=== PATIENT | female | born 1960 | race African-American/Black ===

== ENCOUNTER 2017-02-06 12:08 | Emergency (ER) | payer SELFPAY ==
[~2017-02-06] VITALS: Ht 182.9 cm; Wt 65.8 kg
[2017-02-06 12:24] VITALS: BP 127/85
[2017-02-06] MEDS ORDERED: NAPROXEN 500 MG TABLET PO STA (12:33)
[2017-02-06] MEDS ORDERED: METH4TAB2 PO (12:40)
[2017-02-06] MEDS ORDERED: CYCL10TA2 PO (12:40)
--- NOTE | 2017-02-06 12:41 | PHYS DOC ---
Past Medical History Past Medical History: Other Additional Past Medical Histor: CHRONIC BACK PAIN Past Surgical History: No Surgical History Alcohol Use: Occasionally Drug Use: None Adult General Chief Complaint Chief Complaint: BACK PAIN - NO INJURY HPI HPI Patient is a 56 year old female who presents today with complaints of bilateral low back pain moderate in nature radiating to the right lower extremity that is chronic but has gotten worse in the last couple days. Patient states the pain is worse when she is ambulating. Patient denies any trauma. Denies any loss of bowel bladder function. Patient is also complaining of chronic dental caries with dental pain. She would like antibiotics. She does not have a dentist. Review of Systems Review of Systems Constitutional: Denies fever or chills [] Eyes: Denies change in visual acuity, redness, or eye pain [] HENT: Chronic dental pain GI: Denies abdominal pain, nausea, vomiting, bloody stools or diarrhea [] : Denies dysuria or hematuria [] Musculoskeletal: Low back pain Integument: Denies rash or skin lesions [] Neurologic: Denies headache, focal weakness or sensory changes [] Endocrine: Denies polyuria or polydipsia [] Current Medications Current Medications Current Medications Medications (Trade) Dose Ordered Sig/Zulma Start Time Stop Time Status Last Admin Dose Admin Acetaminophen/ Hydrocodone Bitart (Lortab 5/325) 1 tab 1X ONCE 02/06/17 12:45 02/06/17 12:46 DC 02/06/17 12:53 1 TAB Cyclobenzaprine HCl (Flexeril) 10 mg 1X ONCE 02/06/17 12:45 02/06/17 12:46 DC 02/06/17 12:53 10 MG Naproxen (Naprosyn) 500 mg 1X STAT 02/06/17 12:33 02/06/17 12:39 DC 02/06/17 12:53 500 MG Ondansetron HCl (Zofran Odt) 4 mg 1X ONCE 02/06/17 12:45 02/06/17 12:46 DC 02/06/17 12:52 4 MG Allergies Allergies Allergies Coded Allergies Type Severity Reaction Last Updated Verified No Known Drug Allergies 11/25/14 No Physical Exam Physical Exam Constitutional: Well developed, well nourished, no acute distress, non-toxic appearance. [] HENT: Normocephalic, atraumatic, bilateral external ears normal, oropharynx moist, no oral exudates, nose normal. [] Scattered dental caries throughout her teeth. Abdomen: Bowel sounds normal, soft, no tenderness, no masses, no pulsatile masses. [] Skin: Warm, dry, no erythema, no rash. [] Back: Diffuse paraspinal muscle tenderness to bilateral low lumbar region, no midline lumbar spine tenderness, no CVA tenderness. Positive right leg straight raise Extremities: No tenderness, no cyanosis, no clubbing, ROM intact, no edema. [] Neurologic: Alert and oriented X 3, normal motor function, normal sensory function, no focal deficits noted. [] Psychologic: Affect normal, judgement normal, mood normal. [] Current Patient Data Vital Signs Vital Signs Date Time Temp Pulse Resp B/P (MAP) Pulse Ox O2 Delivery O2 Flow Rate FiO2 02/06/17 12:24 97.6 82 18 98 Room Air 97.6 EKG EKG [] Radiology/Procedures Radiology/Procedures [] Course & Med Decision Making Course & Med Decision Making Pertinent Labs and Imaging studies reviewed. (See chart for details) Patient is in the ED with exacerbation of chronic back pain. She was discharged with Medrol Dosepak, naproxen, and Flexeril. Provided a doctor's list for follow -up. Provided return precautions. She was also discharged with amoxicillin for dental caries and encouraged to follow up with a dentist. Dragon Disclaimer Dragon Disclaimer This electronic medical record was generated, in whole or in part, using a voice recognition dictation system. Departure Departure Impression: Primary Impression: Chronic low back pain with sciatica Additional Impressions: Chronic dental pain Dental caries Disposition: 01 HOME, SELF-CARE Condition: STABLE Referrals: NO PCP (PCP) follow up with a primary care doctor in one week Patient Instructions: Back Pain, Adult, Sciatica, [id number] Additional Instructions: You were seen for chronic back pain. We sent you home with medications to help. Please consider establishing care with a primary doctor. Follow-up in the next 1 -2 weeks. Come back to the ED symptoms worsen. Scripts Amoxicillin (AMOXICILLIN) 875 Mg Tablet 1 TAB PO BID, #20 TAB Prov: MUTUNGAJENNIFER POSTPARTUM RN 02/06/17 Naproxen (NAPROXEN) 500 Mg Tablet.dr 1 TAB PO BID, #60 TAB 2 Refills Prov: JENNIFER KNOX APRN 02/06/17 Cyclobenzaprine Hcl (CYCLOBENZAPRINE HCL) 10 Mg Tablet 1 TAB PO TID, #30 TAB Prov: JENNIFER KNOX APRN 02/06/17 Methylprednisolone (MEDROL) 4 Mg Tab.ds.pk 1 PKG PO UD, #1 PKG Prov: JENNIFER KNOX APRN 02/06/17 Cyclobenzaprine Hcl (CYCLOBENZAPRINE HCL) 10 Mg Tablet 1 TAB PO TID, #30 TAB Prov: JENNIFER KNOX APRN 02/06/17 Problem Qualifiers Primary Impression: Chronic low back pain with sciatica Back pain laterality: right Sciatica laterality: sciatica of right side Qualified Codes: M54.41 - Lumbago with sciatica, right side; G89.29 - Other chronic pain JENNIFER KNOX GIA February 06, 2017 12:41
[2017-02-06] MEDS ORDERED: CYCLOBENZAPRINE 10 MG TABLET. PO ONE (12:45)
[2017-02-06] MEDS ORDERED: ONDANSETRON ODT 4 MG TAB.RAPDIS. PO ONE (12:45)
[2017-02-06] MEDS ORDERED: HYDROcodone/APAP 5/325MG 1 TAB TABLET PO ONE (12:45)
[2017-02-06] MEDS ORDERED: NAPR500T8 PO (12:53)
[2017-02-06] MEDS ORDERED: AMOX875T PO (12:53)
== END 2017-02-06 12:57 | disposition home or self-care (01) ==
LOC: ER 12:08
DX: G89.29 Other chronic pain (principal); M54.41 Lumbago with sciatica, right side; K02.9 Dental caries, unspecified; K08.89 Other specified disorders of teeth and supporting structures
CPT/HCPCS: 99284; Q0162

== ENCOUNTER 2017-02-15 18:23 | Inpatient (IN) | payer SELFPAY ==
[~2017-02-15] VITALS: Ht 182.9 cm; Wt 58.2 kg
[~2017-02-15 18:23] MED LIST: AMOX875T PO; CYCL10TA2 PO; METH4TAB2 PO; NAPR500T8 PO
[2017-02-15 19:25] LABS: BILIRUBIN,URINE MODERATE (NEG); GLUCOSE,URINE NEGATIVE (NEG); PH,URINE 5.5; PROTEIN,URINE NEGATIVE (NEG-TRACE)
[2017-02-15] MEDS ORDERED: ONDANSETRON PF 4 MG/2 ML VIAL. IV ONE (19:30)
[2017-02-15] MEDS ORDERED: fentaNYL PF VIAL 100 MCG/2 ML VIAL IV ONE (19:30)
[2017-02-15 19:32] LABS: BARBITURATES NEG (NEG); BENZODIAZEPINES NEG (NEG); CANNABINOIDS POS (NEG); COCAINE NEG (NEG); METHADONE NEG (NEG); OPIATES NEG (NEG); PHENCYCLIDINE NEG (NEG)
[2017-02-15 19:39] LABS: BASO % 0 % (0-3); EOS % 0 % (0-3); HEMATOCRIT 37.7 % (36.0-47.0); LYMPH # 1.3 x10^3/uL (1.0-4.8); LYMPH % 17 % (24-48); MEAN CORPUSCULAR HEMOGLOBIN 32 pg (25-35); MEAN CORPUSCULAR HGB CONC 34 g/dL (31-37); MEAN CORPUSCULAR VOLUME 94 fL (79-100); MONO % 12 % (0-9); NEUT % 70 % (31-73); PLATELET COUNT 265 x10^3/uL (140-400); RED CELL DISTRIBUTION WIDTH 15.3 % (11.5-14.5); WHITE BLOOD COUNT 7.6 x10^3/uL (4.0-11.0)
[2017-02-15 19:43] LABS: BACTERIA,URINE FEW /HPF (0-FEW); NITRITE,URINE NEGATIVE (NEG); RBC,URINE OCC /HPF (0-2); SQUAMOUS EPITHELIAL CELL,UR MANY /LPF
[2017-02-15] MEDS ORDERED: IV NORMAL SALINE 1000ML BAG 1,000 ML IV ONE (19:45)
[2017-02-15 19:55] LABS: ALBUMIN 3.1 g/dL (3.4-5.0); ALBUMIN/GLOBULIN RATIO 0.7 (1.0-1.7); CALCIUM 9.2 mg/dL (8.5-10.1); CREATININE 0.9 mg/dL (0.6-1.0); TOTAL BILIRUBIN 1.9 mg/dL (0.2-1.0); TOTAL PROTEIN 7.5 g/dL (6.4-8.2)
[2017-02-15 19:57] LABS: POTASSIUM 2.6 mmol/L (3.5-5.1)
[2017-02-15] MEDS ORDERED: FAMOTIDINE 20 MG/2 ML VIAL IVP ONE (20:00)
[2017-02-15] MEDS ORDERED: POTASSIUM CHLORIDE 20MEQ 50 ML IV ONE (20:00)
[2017-02-15] MEDS ORDERED: POTASSIUM CHLORIDE 20 MEQ TABLET.ER. PO ONE ×2 (20:00→22:00)
--- NOTE | 2017-02-15 21:03 | RAD ---
PROCEDURE Complete abdominal ultrasound dated 02/15/2017. HISTORY Abdominal pain. Abnormal labs. TECHNIQUE Routine sonographic imaging performed. COMPARISON None. FINDINGS Liver is of diffusely increased echogenicity compatible with fatty infiltration. No apparent hepatic mass. Biliary tree normal in caliber. Common bile duct measures 2 millimeter. Echogenic shadowing foci within the gallbladder lumen. There is also some layering echogenicity consistent with sludge. No gallbladder wall thickening or pericholecystic fluid. Right kidney measures 9.9 centimeter in length. Left kidney measures 10.0 centimeter in length. No hydronephrosis. Spleen is homogeneous in echogenicity and measures 6.4 centimeters longitudinal dimension. Pancreas aorta and IVC not well visualized due to overlying bowel gas. No significant ascites. IMPRESSION - Cholelithiasis and gallbladder sludge. There no secondary signs of acute cholecystitis. - Mild hepatic steatosis. Electronically signed by: Clif Beard (February 15, 2017 21:02:58)
[2017-02-15 21:20] VITALS: BP 158/105
[2017-02-15] MEDS ORDERED: MAGNESIUM HYDROXIDE 2,400 MG/30 ML ORAL.SUSP. PO PRN (21:30)
[2017-02-15] MEDS ORDERED: BISACODYL 10 MG SUPP.RECT. PR PRN (21:30)
[2017-02-15] MEDS ORDERED: PROCHLORPERAZINE 10 MG/2 ML VIAL. IV PRN (21:30)
[2017-02-15] MEDS ORDERED: LABETALOL 20 MG/4 ML DISP.SYRIN. IVP PRN (21:30)
[2017-02-15] MEDS ORDERED: KETOROLAC 15 MG/ML VIAL. IV PRN (21:30)
[2017-02-15] MEDS ORDERED: MORPHINE SULFATE 2 MG/ML DISP.SYRIN. IV PRN (21:30)
[2017-02-15] MEDS ORDERED: ZOLPIDEM 5 MG TABLET. PO PRN (21:30)
[2017-02-15] MEDS ORDERED: ONDANSETRON PF 4 MG/2 ML VIAL. IV PRN ×2 (21:30)
[2017-02-15] MEDS ORDERED: ACETAMINOPHEN 325 MG TABLET. PO PRN (21:30)
[2017-02-15] MEDS ORDERED: CALCIUM CARBONATE 500 MG TAB.CHEW PO PRN (21:30)
[2017-02-15] MEDS ORDERED: NICOTINE 21MG PATCH. TD PRN ×2 (21:30→22:00)
[2017-02-15] MEDS ORDERED: PROCHLORPERAZINE 25 MG SUPP.RECT. PR PRN (21:30)
[2017-02-15] MEDS ORDERED: MAG HYDROX/ALUMINUM HYD/SIMETH 30 ML ORAL.SUSP PO PRN (21:30)
[2017-02-15] MEDS ORDERED: chlordiazePOXIDE HCL 25 MG CAPSULE PO PRN (21:45)
--- NOTE | 2017-02-15 21:50 | PDOC1 ---
History and Physical Date of Admission Date of Admission DATE: 02/15/17 TIME: 21:38 Identification/Chief Complaint Chief Complaint back pain, nausea, vomiting, diarrhea few days Problems: Source Source: Caregiver, Chart review, Patient History of Present Illness History of Present Illness 56 y.o AA female, rough lifestyle with alcohol drinking, smoking, recreational drug use, admitted this time for critical hypokalemia from nausea, emesis, loose stools 3x./day, non bloody for few days now. AT ER, K 2 plus, No mag, Still some watery diarrhea in room, no recent sick contacts or recent travels. NO fevers, no white ct, Admits to smoking marijuana, drinks 4 beers a day and some gin, consumes 1/4th of a pack of cigarettes a day, US showed fatty liver and gB sludge and cholelithiasis, but no inflammation. She is tender to touch in epigastric/danielle umbilical area, She sought consult last week at ER for similar sxs, back pain and emesis sent home with Rx but no resolve hence back here. ABd pain mostly central, involving the back, no identifiable precipitating or alleviating factor, maybe 8/10 worst case, with diarrhea and emesis PAst medical: CAD 1 stent many yrs ago Brain sx for "clot" [facility] Past Medical History Cardiovascular: CAD, Other (1 stent) Heme/Onc: Other (brain clot) Past Surgical History Past Surgical History: Other (brain sx, cardiac cath) Family History Family History: No Significant, Family History Unknown, Other (reviewed, she does not know for sure) Social History Smoke: <1 pack per day ALCOHOL: heavy Drugs: Cocaine, Marijuana Current Problem List Problem List Problems Medical Problems: (1) Abdominal pain Status: Acute (2) Hypokalemia Status: Acute Problems: Current Medications Current Medications Current Medications Fentanyl Citrate (Fentanyl 2ml Vial) 50 mcg 1X ONCE IV Last administered on 20:02; Start 02/15/17 at 19:30; Stop 02/15/17 at 19:31; Status DC Ondansetron HCl (Zofran) 4 mg 1X ONCE IV Last administered on 02/15/17 20:00 ; Start 02/15/17 at 19:30; Stop 02/15/17 at 19:31; Status DC Sodium Chloride 1,000 ml @ 1,000 mls/hr 1X ONCE IV Last administered on 19:59; Start 02/15/17 at 19:45; Stop 02/15/17 at 20:44; Status DC Famotidine (Pepcid) 20 mg 1X ONCE IVP Last administered on 02/15/17 20:16; Start 02/15/17 at 20:00; Stop 02/15/17 at 20:08; Status DC Potassium Chloride (Klor-Con) 40 meq 1X ONCE PO Last administered on 20:16; Start 02/15/17 at 20:00; Stop 02/15/17 at 20:08; Status DC Potassium Chloride 50 ml @ 50 mls/hr 1X ONCE IV Last administered on 20:16; Start 02/15/17 at 20:00; Stop 02/15/17 at 20:59; Status DC Potassium Chloride/Sodium Chloride 1,000 ml @ 100 mls/hr Q10H IV ; Start at 22:00 Ondansetron HCl (Zofran) 4 mg PRN Q6HRS PRN IV NAUSEA/VOMITING; Start 02/15/17 at 21:30 Prochlorperazine Edisylate (Compazine) 10 mg PRN Q6HRS PRN IV NAUSEA/VOMITING; Start 02/15/17 at 21:30 Prochlorperazine (Compazine) 25 mg PRN Q12HR PRN LA NAUSEA/VOMITING; Start at 21:30 Al Hydroxide/Mg Hydroxide (Mylanta Plus Xs) 30 ml PRN Q3HRS PRN PO HEARTBURN / GAS; Start 02/15/17 at 21:30 Calcium Carbonate/ Glycine (Tums) 500 mg PRN Q3HRS PRN PO UPSET STOMACH; Start 02/15/17 at 21:30 Zolpidem Tartrate (Ambien) 5 mg PRN QHS PRN PO INSOMNIA, MAY REPEAT IN 1HR; Start 02/15/17 at 21:30 Oxycodone HCl (Roxicodone) 5 mg PRN Q3HRS PRN PO BREAKTHROUGH PAIN; Start 02/15 at 21:30 Morphine Sulfate 1 mg PRN Q1HR PRN IV MODERATE PAIN; Start 02/15/17 at 21:30 Ketorolac Tromethamine (Toradol) 15 mg PRN Q6HRS PRN IV MODERATE PAIN; Start at 21:30; Stop 02/20/17 at 21:29 Acetaminophen (Tylenol) 650 mg PRN Q6HRS PRN PO Headaches, Temp > 101.5F; Start 02/15/17 at 21:30 Senna/Docusate Sodium (Senna Plus) 1 tab BID PO ; Start 02/16/17 at 09:00 Magnesium Hydroxide (Milk Of Magnesia) 2,400 mg PRN Q12HR PRN PO CONSTIPATION; Start 02/15/17 at 21:30 Bisacodyl (Dulcolax Supp) 10 mg PRN DAILY PRN LA CONSTIPATION; Start 02/15/17 at 21:30 Enoxaparin Sodium (Lovenox 40mg Syringe) 40 mg Q24H SQ ; Start 02/15/17 at 22:00 Nicotine (Nicoderm Cq 21mg) 1 patch PRN DAILY PRN TD SMOKING CESSATION; Start 02/15/17 at 21:30 Labetalol HCl (Normodyne) 10 mg PRN Q2HR PRN IVP HYPERTENSION, SEE COMMENTS; Start 02/15/17 at 21:30 Ondansetron HCl (Zofran) 4 mg PRN Q8HRS PRN IV NAUSEA/VOMITING; Start 02/15/17 at 21:30; Stop 02/16/17 at 21:29; Status UNV Multivitamins 10 ml/Folic Acid 1 mg/Thiamine HCl 100 mg/Dextrose/ Sodium Chloride 1,011.2 ml @ 1,000 mls/ hr 1X ONCE IV ; Start 02/15/17 at 22:00; Stop 02/15/17 at 23:00 Famotidine (Pepcid) 20 mg BID IVP ; Start 02/16/17 at 09:00 Potassium Chloride (Klor-Con) 40 meq 1X ONCE PO ; Start 02/15/17 at 22:00; Stop 02/15/17 at 22:01 Potassium Chloride (Klor-Con) 40 meq DAILY PO ; Start 02/16/17 at 09:00 Active Scripts Active Amoxicillin 875 Mg Tablet 1 Tab PO BID Naproxen 500 Mg Tablet.dr 1 Tab PO BID Cyclobenzaprine Hcl 10 Mg Tablet 1 Tab PO TID Medrol (Methylprednisolone) 4 Mg Tab.ds.pk 1 Pkg PO UD Cyclobenzaprine Hcl 10 Mg Tablet 1 Tab PO TID Allergies Allergies: Coded Allergies: No Known Drug Allergies (Unverified , 11/25/14) ROS General: No: Chills, Night Sweats, Fatigue, Malaise, Appetite, Other PSYCHOLOGICAL ROS: No: Anxiety, Behavioral Disorder, Concentration difficultie , Decreased libido, Depression, Disorientation, Hallucinations, Hostility, Irritablity, Memory difficulties, Mood Swings, Obsessive thoughts, Physical abuse, Sexual abuse, Sleep disturbances, Suicidal ideation, Other Eyes: No Blurry vision, No Decreased vision, No Double vision, No Dry eyes, No Excessive tearing, No Eye Pain, No Itchy Eyes, No Loss of vision, No Photophobia , No Scotomata, No Uses contacts, No Uses glasses, No Other HEENT: No: Heacaches, Visual Changes, Hearing change, Nasal congestion, Nasal discharge, Oral lesions, Sinus pain, Sore Throat, Epistaxis, Sneezing, Snoring, Tinnitus, Vertigo, Vocal changes, Other ALLERGY AND IMMUNOLOGY: No: Hives, Insect Bite Sensitivity, Itchy/Watery Eyes, Nasal Congestion, Post Nasal Drip, Seasonal Allergies, Other Hematological and Lymphatic: No: Bleeding Problems, Blood Clots, Blood Transfusions, Brusing, Night Sweats, Pallor, Swollen Lymph Nodes, Other ENDOCRINE: No: Breast Changes, Galactorrhea, Hair Pattern Changes, Hot Flashes , Malaise/lethargy, Mood Swings, Palpitations, Polydipsia/polyuria, Skin Changes , Temperature Intolerance, Unexpected Weight Changes, Other Breast: No New/Changing Breast Lumps, No Nipple changes, No Nipple discharge, No Other Respiratory: No: Cough, Hemoptysis, Orthopnea, Pleuritic Pain, Shortness of breath, SOB with excertion, Sputum Changes, Stridor, Tachypnea, Wheezing, Other Cardiovascular: No Chest Pain, No Palpitations, No Orthopnea, No Paroxysmal Noc. Dyspnea, No Edema, No Lt Headedness, No Other Gastrointestinal: Yes Nausea, Yes Vomiting, Yes Abdominal Pain, Yes Diarrhea Genitourinary: No Dysuria, No Frequency, No Incontinence, No Hematuria, No Retention, No Discharge, No Urgency, No Pain, No Flank Pain, No Other, No , No , No , No , No , No , No Musculoskeletal: No Gait Disturbance, No Joint Pain, No Joint Stiffness, No Joint Swelling, No Muscle Pain, No Muscular Weakness, No Pain In:, No Swelling In:, No Other Neurological: No Behavorial Changes, No Bowel/Bladder ControlChng, No Confusion , No Dizziness, No Gait Disturbance, No Headaches, No Impaired Coord/balance, No Memory Loss, No Numbness/Tingling, No Seizures, No Speech Problems, No Tremors, No Visual Changes, No Weakness, No Other Skin: No Dry Skin, No Eczema, No Hair Changes, No Lumps, No Mole Changes, No Mottling, No Nail Changes, No Pruritus, No Rash, No Skin Lesion Changes, No Other, No Acne Physical Exam General: Alert, Oriented X3, Cooperative, No acute distress HEENT: Atraumatic Lungs: Clear to auscultation, Normal air movement Heart: S1S2, RRR, no thrills, no rubs, no gallops, no murmurs Cardiovascular: S1, S2 Breasts: Normal Abdomen: Soft, Other (tenderness epigastric and periumbilical areas, no guarding no rebound) Rectal Exam: not examined PELVIC: Nml ext genitalia Extremities: No clubbing, No cyanosis, No edema, Normal pulses, No tenderness/ swelling Skin: No rashes, No breakdown, No significant lesion Neuro: Normal gait, Normal speech, Strength at 5/5 X4 ext, Normal tone, Sensation intact, Cranial nerves 3-12 NL, Reflexes 2+ Psych/Mental Status: Mental status NL, Mood NL Vitals Vitals Vital Signs Date Time Temp Pulse Resp B/P (MAP) Pulse Ox O2 Delivery O2 Flow Rate FiO2 02/15/17 20:40 82 165/92 (116) 02/15/17 20:02 Room Air 02/15/17 18:40 97.8 20 99 97.8 Labs Labs Laboratory Tests Test 02/15/17 19:02 02/15/17 19:29 Urine Collection Type Unknown Urine Color Sebastian Urine Clarity Turbid Urine pH 5.5 Urine Specific [place] 1.020 Urine Protein Negative mg/dL (NEG-TRACE) Urine Glucose (UA) Negative mg/dL (NEG) Urine Ketones (Stick) Trace mg/dL (NEG) Urine Blood Negative (NEG) Urine Nitrite Negative (NEG) Urine Bilirubin Moderate (NEG) Urine Urobilinogen Dipstick 2.0 mg/dL (0.2 mg/dL) Urine Leukocyte Esterase Negative (NEG) Urine RBC Occ /HPF (0-2) Urine WBC 1-4 /HPF (0-4) Urine Squamous Epithelial Cells Many /LPF Urine Bacteria Few /HPF (0-FEW) Urine Hyaline Casts Many /HPF Urine Mucus Marked /LPF Urine Opiates Screen Neg (NEG) Urine Methadone Screen Neg (NEG) Urine Barbiturates Neg (NEG) Urine Phencyclidine Screen Neg (NEG) Urine Amphetamine/Methamphetamine Neg (NEG) Urine Benzodiazepines Screen Neg (NEG) Urine Cocaine Screen Neg (NEG) Urine Cannabinoids Screen Pos (NEG) Urine Ethyl Alcohol Pos (NEG) White Blood Count 7.6 x10^3/uL (4.0-11.0) Red Blood Count 4.00 x10^6/uL (3.50-5.40) Hemoglobin 13.0 g/dL (12.0-15.5) Hematocrit 37.7 % (36.0-47.0) Mean Corpuscular Volume 94 fL (79-100) Mean Corpuscular Hemoglobin 32 pg (25-35) Mean Corpuscular Hemoglobin Concent 34 g/dL (31-37) Red Cell Distribution Width 15.3 % (11.5-14.5) Platelet Count 265 x10^3/uL (140-400) Neutrophils (%) (Auto) 70 % (31-73) Lymphocytes (%) (Auto) 17 % (24-48) Monocytes (%) (Auto) 12 % (0-9) Eosinophils (%) (Auto) 0 % (0-3) Basophils (%) (Auto) 0 % (0-3) Neutrophils # (Auto) 5.3 x10^3uL (1.8-7.7) Lymphocytes # (Auto) 1.3 x10^3/uL (1.0-4.8) Monocytes # (Auto) 0.9 x10^3/uL (0.0-1.1) Eosinophils # (Auto) 0.0 x10^3/uL (0.0-0.7) Basophils # (Auto) 0.0 x10^3/uL (0.0-0.2) Sodium Level 131 mmol/L (136-145) Potassium Level 2.6 mmol/L (3.5-5.1) Chloride Level 92 mmol/L (98-107) Carbon Dioxide Level 26 mmol/L (21-32) Anion Gap 13 (6-14) Blood Urea Nitrogen 5 mg/dL (7-20) Creatinine 0.9 mg/dL (0.6-1.0) Estimated GFR (Cockcroft-Gault) 79.0 BUN/Creatinine Ratio 6 (6-20) Glucose Level 123 mg/dL (70-99) Calcium Level 9.2 mg/dL (8.5-10.1) Total Bilirubin 1.9 mg/dL (0.2-1.0) Aspartate Amino Transf (AST/SGOT) 66 U/L (15-37) Alanine Aminotransferase (ALT/SGPT) 55 U/L (14-59) Alkaline Phosphatase 219 U/L (46-116) Total Protein 7.5 g/dL (6.4-8.2) Albumin 3.1 g/dL (3.4-5.0) Albumin/Globulin Ratio 0.7 (1.0-1.7) Lipase 53 U/L (73-393) Ethyl Alcohol Level < 10 mg/dL (0-10) Laboratory Tests Test 02/15/17 19:02 02/15/17 19:29 Urine Collection Type Unknown Urine Color Sebastian Urine Clarity Turbid Urine pH 5.5 Urine Specific [place] 1.020 Urine Protein Negative mg/dL (NEG-TRACE) Urine Glucose (UA) Negative mg/dL (NEG) Urine Ketones (Stick) Trace mg/dL (NEG) Urine Blood Negative (NEG) Urine Nitrite Negative (NEG) Urine Bilirubin Moderate (NEG) Urine Urobilinogen Dipstick 2.0 mg/dL (0.2 mg/dL) Urine Leukocyte Esterase Negative (NEG) Urine RBC Occ /HPF (0-2) Urine WBC 1-4 /HPF (0-4) Urine Squamous Epithelial Cells Many /LPF Urine Bacteria Few /HPF (0-FEW) Urine Hyaline Casts Many /HPF Urine Mucus Marked /LPF Urine Opiates Screen Neg (NEG) Urine Methadone Screen Neg (NEG) Urine Barbiturates Neg (NEG) Urine Phencyclidine Screen Neg (NEG) Urine Amphetamine/Methamphetamine Neg (NEG) Urine Benzodiazepines Screen Neg (NEG) Urine Cocaine Screen Neg (NEG) Urine Cannabinoids Screen Pos (NEG) Urine Ethyl Alcohol Pos (NEG) White Blood Count 7.6 x10^3/uL (4.0-11.0) Red Blood Count 4.00 x10^6/uL (3.50-5.40) Hemoglobin 13.0 g/dL (12.0-15.5) Hematocrit 37.7 % (36.0-47.0) Mean Corpuscular Volume 94 fL (79-100) Mean Corpuscular Hemoglobin 32 pg (25-35) Mean Corpuscular Hemoglobin Concent 34 g/dL (31-37) Red Cell Distribution Width 15.3 % (11.5-14.5) Platelet Count 265 x10^3/uL (140-400) Neutrophils (%) (Auto) 70 % (31-73) Lymphocytes (%) (Auto) 17 % (24-48) Monocytes (%) (Auto) 12 % (0-9) Eosinophils (%) (Auto) 0 % (0-3) Basophils (%) (Auto) 0 % (0-3) Neutrophils # (Auto) 5.3 x10^3uL (1.8-7.7) Lymphocytes # (Auto) 1.3 x10^3/uL (1.0-4.8) Monocytes # (Auto) 0.9 x10^3/uL (0.0-1.1) Eosinophils # (Auto) 0.0 x10^3/uL (0.0-0.7) Basophils # (Auto) 0.0 x10^3/uL (0.0-0.2) Sodium Level 131 mmol/L (136-145) Potassium Level 2.6 mmol/L (3.5-5.1) Chloride Level 92 mmol/L (98-107) Carbon Dioxide Level 26 mmol/L (21-32) Anion Gap 13 (6-14) Blood Urea Nitrogen 5 mg/dL (7-20) Creatinine 0.9 mg/dL (0.6-1.0) Estimated GFR (Cockcroft-Gault) 79.0 BUN/Creatinine Ratio 6 (6-20) Glucose Level 123 mg/dL (70-99) Calcium Level 9.2 mg/dL (8.5-10.1) Total Bilirubin 1.9 mg/dL (0.2-1.0) Aspartate Amino Transf (AST/SGOT) 66 U/L (15-37) Alanine Aminotransferase (ALT/SGPT) 55 U/L (14-59) Alkaline Phosphatase 219 U/L (46-116) Total Protein 7.5 g/dL (6.4-8.2) Albumin 3.1 g/dL (3.4-5.0) Albumin/Globulin Ratio 0.7 (1.0-1.7) Lipase 53 U/L (73-393) Ethyl Alcohol Level < 10 mg/dL (0-10) VTE Prophylaxis Ordered VTE Prophylaxis Devices: Yes VTE Pharmacological Prophylaxi: Yes Assessment/Plan Assessment/Plan 1. Abdominal pain, epigastric, periumbilical with radiation to back difftls include cholelithiasis (though not the classic RUQ pain, PUD ryley given heavy smoking and etoh hx). 2. CHolelithiasis but no cholecystitis, fatty liver 3. Heavy etoh drinker 4. Recreational drug use 5. SMoker 6. ELevated LFts 7. Known CAD with 1 cardiac stent 8, hx brain "clot" 9,. CRITICAL HYPOKALEMIA from GI loss (emesis, diarrhea) PLAN: Admit 2 MN NPO post mN in case GS plans K containing iVF BMP again gennaro Check mag consult GI and GS Banana bag then thiamine, MVI, librium, folate PPI while NPO Nicorette gum and patch Anti emetics PAin emds Send for stool studies Keep hydrated WOF etoh withdrawal Counselled, heavy on lifestyle Dw pt, family , RN and aide at bedside GILLIAN BAKER MD February 15, 2017 21:50
[2017-02-15] MEDS ORDERED: NICOTINE POLACRILEX 2MG GUM PACKAGE of 12. BC PRN (22:00)
[2017-02-15] MEDS ORDERED: MULTIVIT INFUSN,ADULT 4,VIT K 10 ML, FOLIC ACID 1 MG, THIAMINE 100 MG in IV DEXTROSE 5 ... IV ONE (22:00)
[2017-02-15] MEDS: ENOXAPARIN 40 MG/0.4 ML SYRINGE. SQ SCH (22:05)
[2017-02-15] MEDS: POTASSIUM CL 40MEQ IN 0.9%NACL 1,000 ML IV SCH (22:06)
[2017-02-15 23:00] VITALS: BP 124/97
[2017-02-16 05:11] LABS: MAGNESIUM 1.6 mg/dL (1.8-2.4); PHOSPHORUS 2.3 mg/dL (2.6-4.7)
[2017-02-16 05:12] LABS: INR 1.1 (0.8-1.1); PROTHROMBIN TIME PATIENT 13.8 SEC (11.7-14.0)
[2017-02-16 05:45] LABS: BASO # 0.1 x10^3/uL (0.0-0.2); BASO % 1 % (0-3); EOS % 0 % (0-3); HEMATOCRIT 27.9 % (36.0-47.0); HEMOGLOBIN 9.4 g/dL (12.0-15.5); LYMPH # 2.7 x10^3/uL (1.0-4.8); LYMPH % 37 % (24-48); MEAN CORPUSCULAR HEMOGLOBIN 32 pg (25-35); MEAN CORPUSCULAR HGB CONC 34 g/dL (31-37); MEAN CORPUSCULAR VOLUME 95 fL (79-100); MONO % 12 % (0-9); NEUT % 50 % (31-73); PLATELET COUNT 202 x10^3/uL (140-400); RED BLOOD COUNT 2.95 x10^6/uL (3.50-5.40); RED CELL DISTRIBUTION WIDTH 15.8 % (11.5-14.5); WHITE BLOOD COUNT 7.1 x10^3/uL (4.0-11.0)
[2017-02-16 05:55] LABS: CALCIUM 7.9 mg/dL (8.5-10.1); CREATININE 0.7 mg/dL (0.6-1.0); GFR 105.5; POTASSIUM 4.3 mmol/L (3.5-5.1)
--- NOTE | 2017-02-16 06:17 | EKG ---
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
[2017-02-16 07:00] VITALS: BP 122/69
[2017-02-16] MEDS: POTASSIUM CL 40MEQ IN 0.9%NACL 1,000 ML IV SCH (07:48)
[2017-02-16] MEDS ORDERED: MAGNESIUM SULFATE 2GM 50 ML IV ONE (08:00)
--- NOTE | 2017-02-16 08:21 | PDOC ---
PROGRESS NOTES Chief Complaint Chief Complaint 1. Abdominal pain, epigastric, periumbilical with radiation to back difftls include cholelithiasis (though not the classic RUQ pain, PUD ryley given heavy smoking and etoh hx). 2. CHolelithiasis but no cholecystitis, fatty liver 3. Heavy etoh drinker 4. Recreational drug use 5. SMoker 6. ELevated LFts 7. Known CAD with 1 cardiac stent 8, hx brain "clot" 9,. CRITICAL HYPOKALEMIA from GI loss (emesis, diarrhea) History of Present Illness History of Present Illness Still diarrhea - I have personally seen, sent to lab this AM already Still epigastric pain mostly, tender to palpation HAs been NPO pending GS eval CHolelithiasis on US K 4,5 now MAg 1.6 PLAn: Await GS rounds NPO till GS rounds Dc K containing IVF Replace mag 2 gms x 1 REcheck mag to AM counselled on her lifestyle habits January dc tele Dw RN and executive legal secretary Vitals Vitals Vital Signs Date Time Temp Pulse Resp B/P (MAP) Pulse Ox O2 Delivery O2 Flow Rate FiO2 02/15/17 23:00 98.0 89 20 124/97 (106) 100 Room Air 98.0 Physical Exam General: Alert, Oriented X3, Cooperative, No acute distress Heart: Regular rate Lungs: Clear Abdomen: Soft, Other (tenderness epigastric and periumbilical areas, no guarding no rebound) Extremities: No clubbing, No cyanosis, No edema, Normal pulses, No tenderness/ swelling Skin: No rashes, No breakdown, No significant lesion Labs LABS Laboratory Tests Test 02/15/17 19:02 02/15/17 19:29 02/16/17 03:20 02/16/17 05:30 Urine Collection Type Unknown Urine Color [place] Urine Clarity Turbid Urine pH 5.5 Urine Specific [place] 1.020 Urine Protein Negative mg/dL (NEG-TRACE) Urine Glucose (UA) Negative mg/dL (NEG) Urine Ketones (Stick) Trace mg/dL (NEG) Urine Blood Negative (NEG) Urine Nitrite Negative (NEG) Urine Bilirubin Moderate (NEG) Urine Urobilinogen Dipstick 2.0 mg/dL (0.2 mg/dL) Urine Leukocyte Esterase Negative (NEG) Urine RBC Occ /HPF (0-2) Urine WBC 1-4 /HPF (0-4) Urine Squamous Epithelial Cells Many /LPF Urine Bacteria Few /HPF (0-FEW) Urine Hyaline Casts Many /HPF Urine Mucus Marked /LPF Urine Opiates Screen Neg (NEG) Urine Methadone Screen Neg (NEG) Urine Barbiturates Neg (NEG) Urine Phencyclidine Screen Neg (NEG) Urine Amphetamine/Methamphetamine Neg (NEG) Urine Benzodiazepines Screen Neg (NEG) Urine Cocaine Screen Neg (NEG) Urine Cannabinoids Screen Pos (NEG) Urine Ethyl Alcohol Pos (NEG) White Blood Count 7.6 x10^3/uL (4.0-11.0) 7.1 x10^3/uL (4.0-11.0) Red Blood Count 4.00 x10^6/uL (3.50-5.40) 2.95 x10^6/uL (3.50-5.40) Hemoglobin 13.0 g/dL (12.0-15.5) 9.4 g/dL (12.0-15.5) Hematocrit 37.7 % (36.0-47.0) 27.9 % (36.0-47.0) Mean Corpuscular Volume 94 fL (79-100) 95 fL (79-100) Mean Corpuscular Hemoglobin 32 pg (25-35) 32 pg (25-35) Mean Corpuscular Hemoglobin Concent 34 g/dL (31-37) 34 g/dL (31-37) Red Cell Distribution Width 15.3 % (11.5-14.5) 15.8 % (11.5-14.5) Platelet Count 265 x10^3/uL (140-400) 202 x10^3/uL (140-400) Neutrophils (%) (Auto) 70 % (31-73) 50 % (31-73) Lymphocytes (%) (Auto) 17 % (24-48) 37 % (24-48) Monocytes (%) (Auto) 12 % (0-9) 12 % (0-9) Eosinophils (%) (Auto) 0 % (0-3) 0 % (0-3) Basophils (%) (Auto) 0 % (0-3) 1 % (0-3) Neutrophils # (Auto) 5.3 x10^3uL (1.8-7.7) 3.5 x10^3uL (1.8-7.7) Lymphocytes # (Auto) 1.3 x10^3/uL (1.0-4.8) 2.7 x10^3/uL (1.0-4.8) Monocytes # (Auto) 0.9 x10^3/uL (0.0-1.1) 0.8 x10^3/uL (0.0-1.1) Eosinophils # (Auto) 0.0 x10^3/uL (0.0-0.7) 0.0 x10^3/uL (0.0-0.7) Basophils # (Auto) 0.0 x10^3/uL (0.0-0.2) 0.1 x10^3/uL (0.0-0.2) Sodium Level 131 mmol/L (136-145) 131 mmol/L (136-145) Potassium Level 2.6 mmol/L (3.5-5.1) 4.3 mmol/L (3.5-5.1) Chloride Level 92 mmol/L (98-107) 98 mmol/L (98-107) Carbon Dioxide Level 26 mmol/L (21-32) 23 mmol/L (21-32) Anion Gap 13 (6-14) 10 (6-14) Blood Urea Nitrogen 5 mg/dL (7-20) 8 mg/dL (7-20) Creatinine 0.9 mg/dL (0.6-1.0) 0.7 mg/dL (0.6-1.0) Estimated GFR (Cockcroft-Gault) 79.0 105.5 BUN/Creatinine Ratio 6 (6-20) Glucose Level 123 mg/dL (70-99) 63 mg/dL (70-99) Calcium Level 9.2 mg/dL (8.5-10.1) 7.9 mg/dL (8.5-10.1) Magnesium Level 1.7 mg/dL (1.8-2.4) 1.6 mg/dL (1.8-2.4) Total Bilirubin 1.9 mg/dL (0.2-1.0) Aspartate Amino Transf (AST/SGOT) 66 U/L (15-37) Alanine Aminotransferase (ALT/SGPT) 55 U/L (14-59) Alkaline Phosphatase 219 U/L (46-116) Total Protein 7.5 g/dL (6.4-8.2) Albumin 3.1 g/dL (3.4-5.0) Albumin/Globulin Ratio 0.7 (1.0-1.7) Lipase 53 U/L (73-393) Ethyl Alcohol Level < 10 mg/dL (0-10) Prothrombin Time 13.8 SEC (11.7-14.0) Prothromb Time International Ratio 1.1 (0.8-1.1) Phosphorus Level 2.3 mg/dL (2.6-4.7) Review of Systems Review of Systems epigastric pain, loose stools, no emesis Assessment and Plan Assessmemt and Plan Problems Medical Problems: (1) Abdominal pain Status: Acute (2) Hypokalemia Status: Acute Problems: Comment Review of Relevant I have reviewed the following items ujan m (where applicable) has been applied. Labs Laboratory Tests Test 02/15/17 19:02 02/15/17 19:29 02/16/17 03:20 02/16/17 05:30 Urine Collection Type Unknown Urine Color [place] Urine Clarity Turbid Urine pH 5.5 Urine Specific [place] 1.020 Urine Protein Negative mg/dL (NEG-TRACE) Urine Glucose (UA) Negative mg/dL (NEG) Urine Ketones (Stick) Trace mg/dL (NEG) Urine Blood Negative (NEG) Urine Nitrite Negative (NEG) Urine Bilirubin Moderate (NEG) Urine Urobilinogen Dipstick 2.0 mg/dL (0.2 mg/dL) Urine Leukocyte Esterase Negative (NEG) Urine RBC Occ /HPF (0-2) Urine WBC 1-4 /HPF (0-4) Urine Squamous Epithelial Cells Many /LPF Urine Bacteria Few /HPF (0-FEW) Urine Hyaline Casts Many /HPF Urine Mucus Marked /LPF Urine Opiates Screen Neg (NEG) Urine Methadone Screen Neg (NEG) Urine Barbiturates Neg (NEG) Urine Phencyclidine Screen Neg (NEG) Urine Amphetamine/Methamphetamine Neg (NEG) Urine Benzodiazepines Screen Neg (NEG) Urine Cocaine Screen Neg (NEG) Urine Cannabinoids Screen Pos (NEG) Urine Ethyl Alcohol Pos (NEG) White Blood Count 7.6 x10^3/uL (4.0-11.0) 7.1 x10^3/uL (4.0-11.0) Red Blood Count 4.00 x10^6/uL (3.50-5.40) 2.95 x10^6/uL (3.50-5.40) Hemoglobin 13.0 g/dL (12.0-15.5) 9.4 g/dL (12.0-15.5) Hematocrit 37.7 % (36.0-47.0) 27.9 % (36.0-47.0) Mean Corpuscular Volume 94 fL (79-100) 95 fL (79-100) Mean Corpuscular Hemoglobin 32 pg (25-35) 32 pg (25-35) Mean Corpuscular Hemoglobin Concent 34 g/dL (31-37) 34 g/dL (31-37) Red Cell Distribution Width 15.3 % (11.5-14.5) 15.8 % (11.5-14.5) Platelet Count 265 x10^3/uL (140-400) 202 x10^3/uL (140-400) Neutrophils (%) (Auto) 70 % (31-73) 50 % (31-73) Lymphocytes (%) (Auto) 17 % (24-48) 37 % (24-48) Monocytes (%) (Auto) 12 % (0-9) 12 % (0-9) Eosinophils (%) (Auto) 0 % (0-3) 0 % (0-3) Basophils (%) (Auto) 0 % (0-3) 1 % (0-3) Neutrophils # (Auto) 5.3 x10^3uL (1.8-7.7) 3.5 x10^3uL (1.8-7.7) Lymphocytes # (Auto) 1.3 x10^3/uL (1.0-4.8) 2.7 x10^3/uL (1.0-4.8) Monocytes # (Auto) 0.9 x10^3/uL (0.0-1.1) 0.8 x10^3/uL (0.0-1.1) Eosinophils # (Auto) 0.0 x10^3/uL (0.0-0.7) 0.0 x10^3/uL (0.0-0.7) Basophils # (Auto) 0.0 x10^3/uL (0.0-0.2) 0.1 x10^3/uL (0.0-0.2) Sodium Level 131 mmol/L (136-145) 131 mmol/L (136-145) Potassium Level 2.6 mmol/L (3.5-5.1) 4.3 mmol/L (3.5-5.1) Chloride Level 92 mmol/L (98-107) 98 mmol/L (98-107) Carbon Dioxide Level 26 mmol/L (21-32) 23 mmol/L (21-32) Anion Gap 13 (6-14) 10 (6-14) Blood Urea Nitrogen 5 mg/dL (7-20) 8 mg/dL (7-20) Creatinine 0.9 mg/dL (0.6-1.0) 0.7 mg/dL (0.6-1.0) Estimated GFR (Cockcroft-Gault) 79.0 105.5 BUN/Creatinine Ratio 6 (6-20) Glucose Level 123 mg/dL (70-99) 63 mg/dL (70-99) Calcium Level 9.2 mg/dL (8.5-10.1) 7.9 mg/dL (8.5-10.1) Magnesium Level 1.7 mg/dL (1.8-2.4) 1.6 mg/dL (1.8-2.4) Total Bilirubin 1.9 mg/dL (0.2-1.0) Aspartate Amino Transf (AST/SGOT) 66 U/L (15-37) Alanine Aminotransferase (ALT/SGPT) 55 U/L (14-59) Alkaline Phosphatase 219 U/L (46-116) Total Protein 7.5 g/dL (6.4-8.2) Albumin 3.1 g/dL (3.4-5.0) Albumin/Globulin Ratio 0.7 (1.0-1.7) Lipase 53 U/L (73-393) Ethyl Alcohol Level < 10 mg/dL (0-10) Prothrombin Time 13.8 SEC (11.7-14.0) Prothromb Time International Ratio 1.1 (0.8-1.1) Phosphorus Level 2.3 mg/dL (2.6-4.7) Laboratory Tests Test 02/15/17 19:02 02/15/17 19:29 02/16/17 03:20 02/16/17 05:30 Urine Collection Type Unknown Urine Color [place] Urine Clarity Turbid Urine pH 5.5 Urine Specific [place] 1.020 Urine Protein Negative mg/dL (NEG-TRACE) Urine Glucose (UA) Negative mg/dL (NEG) Urine Ketones (Stick) Trace mg/dL (NEG) Urine Blood Negative (NEG) Urine Nitrite Negative (NEG) Urine Bilirubin Moderate (NEG) Urine Urobilinogen Dipstick 2.0 mg/dL (0.2 mg/dL) Urine Leukocyte Esterase Negative (NEG) Urine RBC Occ /HPF (0-2) Urine WBC 1-4 /HPF (0-4) Urine Squamous Epithelial Cells Many /LPF Urine Bacteria Few /HPF (0-FEW) Urine Hyaline Casts Many /HPF Urine Mucus Marked /LPF Urine Opiates Screen Neg (NEG) Urine Methadone Screen Neg (NEG) Urine Barbiturates Neg (NEG) Urine Phencyclidine Screen Neg (NEG) Urine Amphetamine/Methamphetamine Neg (NEG) Urine Benzodiazepines Screen Neg (NEG) Urine Cocaine Screen Neg (NEG) Urine Cannabinoids Screen Pos (NEG) Urine Ethyl Alcohol Pos (NEG) White Blood Count 7.6 x10^3/uL (4.0-11.0) 7.1 x10^3/uL (4.0-11.0) Red Blood Count 4.00 x10^6/uL (3.50-5.40) 2.95 x10^6/uL (3.50-5.40) Hemoglobin 13.0 g/dL (12.0-15.5) 9.4 g/dL (12.0-15.5) Hematocrit 37.7 % (36.0-47.0) 27.9 % (36.0-47.0) Mean Corpuscular Volume 94 fL (79-100) 95 fL (79-100) Mean Corpuscular Hemoglobin 32 pg (25-35) 32 pg (25-35) Mean Corpuscular Hemoglobin Concent 34 g/dL (31-37) 34 g/dL (31-37) Red Cell Distribution Width 15.3 % (11.5-14.5) 15.8 % (11.5-14.5) Platelet Count 265 x10^3/uL (140-400) 202 x10^3/uL (140-400) Neutrophils (%) (Auto) 70 % (31-73) 50 % (31-73) Lymphocytes (%) (Auto) 17 % (24-48) 37 % (24-48) Monocytes (%) (Auto) 12 % (0-9) 12 % (0-9) Eosinophils (%) (Auto) 0 % (0-3) 0 % (0-3) Basophils (%) (Auto) 0 % (0-3) 1 % (0-3) Neutrophils # (Auto) 5.3 x10^3uL (1.8-7.7) 3.5 x10^3uL (1.8-7.7) Lymphocytes # (Auto) 1.3 x10^3/uL (1.0-4.8) 2.7 x10^3/uL (1.0-4.8) Monocytes # (Auto) 0.9 x10^3/uL (0.0-1.1) 0.8 x10^3/uL (0.0-1.1) Eosinophils # (Auto) 0.0 x10^3/uL (0.0-0.7) 0.0 x10^3/uL (0.0-0.7) Basophils # (Auto) 0.0 x10^3/uL (0.0-0.2) 0.1 x10^3/uL (0.0-0.2) Sodium Level 131 mmol/L (136-145) 131 mmol/L (136-145) Potassium Level 2.6 mmol/L (3.5-5.1) 4.3 mmol/L (3.5-5.1) Chloride Level 92 mmol/L (98-107) 98 mmol/L (98-107) Carbon Dioxide Level 26 mmol/L (21-32) 23 mmol/L (21-32) Anion Gap 13 (6-14) 10 (6-14) Blood Urea Nitrogen 5 mg/dL (7-20) 8 mg/dL (7-20) Creatinine 0.9 mg/dL (0.6-1.0) 0.7 mg/dL (0.6-1.0) Estimated GFR (Cockcroft-Gault) 79.0 105.5 BUN/Creatinine Ratio 6 (6-20) Glucose Level 123 mg/dL (70-99) 63 mg/dL (70-99) Calcium Level 9.2 mg/dL (8.5-10.1) 7.9 mg/dL (8.5-10.1) Magnesium Level 1.7 mg/dL (1.8-2.4) 1.6 mg/dL (1.8-2.4) Total Bilirubin 1.9 mg/dL (0.2-1.0) Aspartate Amino Transf (AST/SGOT) 66 U/L (15-37) Alanine Aminotransferase (ALT/SGPT) 55 U/L (14-59) Alkaline Phosphatase 219 U/L (46-116) Total Protein 7.5 g/dL (6.4-8.2) Albumin 3.1 g/dL (3.4-5.0) Albumin/Globulin Ratio 0.7 (1.0-1.7) Lipase 53 U/L (73-393) Ethyl Alcohol Level < 10 mg/dL (0-10) Prothrombin Time 13.8 SEC (11.7-14.0) Prothromb Time International Ratio 1.1 (0.8-1.1) Phosphorus Level 2.3 mg/dL (2.6-4.7) Medications Current Medications Fentanyl Citrate (Fentanyl 2ml Vial) 50 mcg 1X ONCE IV Last administered on 20:02; Start 02/15/17 at 19:30; Stop 02/15/17 at 19:31; Status DC Ondansetron HCl (Zofran) 4 mg 1X ONCE IV Last administered on 02/15/17 20:00 ; Start 02/15/17 at 19:30; Stop 02/15/17 at 19:31; Status DC Sodium Chloride 1,000 ml @ 1,000 mls/hr 1X ONCE IV Last administered on 19:59; Start 02/15/17 at 19:45; Stop 02/15/17 at 20:44; Status DC Famotidine (Pepcid) 20 mg 1X ONCE IVP Last administered on 02/15/17 20:16; Start 02/15/17 at 20:00; Stop 02/15/17 at 20:08; Status DC Potassium Chloride (Klor-Con) 40 meq 1X ONCE PO Last administered on 20:16; Start 02/15/17 at 20:00; Stop 02/15/17 at 20:08; Status DC Potassium Chloride 50 ml @ 50 mls/hr 1X ONCE IV Last administered on t 20:16; Start 02/15/17 at 20:00; Stop 02/15/17 at 20:59; Status DC Potassium Chloride/Sodium Chloride 1,000 ml @ 100 mls/hr Q10H IV Last administered on 02/16/17t 07:48; Start 02/15/17 at 22:00; Stop 02/16/17 at 08:01 ; Status DC Ondansetron HCl (Zofran) 4 mg PRN Q6HRS PRN IV NAUSEA/VOMITING; Start 02/15/17 at 21:30 Prochlorperazine Edisylate (Compazine) 10 mg PRN Q6HRS PRN IV NAUSEA/VOMITING; Start 02/15/17 at 21:30 Prochlorperazine (Compazine) 25 mg PRN Q12HR PRN PA NAUSEA/VOMITING; Start at 21:30 Al Hydroxide/Mg Hydroxide (Mylanta Plus Xs) 30 ml PRN Q3HRS PRN PO HEARTBURN / GAS; Start 02/15/17 at 21:30 Calcium Carbonate/ Glycine (Tums) 500 mg PRN Q3HRS PRN PO UPSET STOMACH; Start 02/15/17 at 21:30 Zolpidem Tartrate (Ambien) 5 mg PRN QHS PRN PO INSOMNIA, MAY REPEAT IN 1HR; Start 02/15/17 at 21:30 Oxycodone HCl (Roxicodone) 5 mg PRN Q3HRS PRN PO BREAKTHROUGH PAIN; Start 02/15 at 21:30 Morphine Sulfate 1 mg PRN Q1HR PRN IV MODERATE PAIN; Start 02/15/17 at 21:30 Ketorolac Tromethamine (Toradol) 15 mg PRN Q6HRS PRN IV MODERATE PAIN; Start at 21:30; Stop 02/20/17 at 21:29 Acetaminophen (Tylenol) 650 mg PRN Q6HRS PRN PO Headaches, Temp > 101.5F; Start 02/15/17 at 21:30 Senna/Docusate Sodium (Senna Plus) 1 tab BID PO ; Start 02/16/17 at 09:00 Magnesium Hydroxide (Milk Of Magnesia) 2,400 mg PRN Q12HR PRN PO CONSTIPATION; Start 02/15/17 at 21:30 Bisacodyl (Dulcolax Supp) 10 mg PRN DAILY PRN PA CONSTIPATION; Start 02/15/17 at 21:30 Enoxaparin Sodium (Lovenox 40mg Syringe) 40 mg Q24H SQ Last administered on 22:05; Start 02/15/17 at 22:00 Nicotine (Nicoderm Cq 21mg) 1 patch PRN DAILY PRN TD SMOKING CESSATION; Start 02/15/17 at 21:30 Labetalol HCl (Normodyne) 10 mg PRN Q2HR PRN IVP HYPERTENSION, SEE COMMENTS; Start 02/15/17 at 21:30 Ondansetron HCl (Zofran) 4 mg PRN Q8HRS PRN IV NAUSEA/VOMITING; Start 02/15/17 at 21:30; Stop 02/16/17 at 21:29; Status UNV Multivitamins 10 ml/Folic Acid 1 mg/Thiamine HCl 100 mg/Dextrose/ Sodium Chloride 1,011.2 ml @ 1,000 mls/ hr 1X ONCE IV Last administered on 22:04; Start 02/15/17 at 22:00; Stop 02/15/17 at 23:00; Status DC Famotidine (Pepcid) 20 mg BID IVP ; Start 02/16/17 at 09:00 Potassium Chloride (Klor-Con) 40 meq 1X ONCE PO Last administered on 22:04; Start 02/15/17 at 22:00; Stop 02/15/17 at 22:01; Status DC Potassium Chloride (Klor-Con) 40 meq DAILY PO ; Start 02/16/17 at 09:00; Stop at 09:00; Status DC Thiamine Mononitrate (Vitamin B-1) 100 mg DAILY PO ; Start 02/16/17 at 09:00 Folic Acid (Folic Acid) 1 mg DAILY PO ; Start 02/16/17 at 09:00 Vitamin B Complex (Matt B) 1 tab DAILY PO ; Start 02/16/17 at 09:00 Chlordiazepoxide (Librium) 25 mg PRN Q6HRS PRN PO ANXIETY / AGITATION; Start at 21:45 Nicotine (Nicoderm Cq 21mg) 1 patch PRN DAILY PRN TD SMOKING CESSATION; Start 02/15/17 at 22:00; Status UNV Nicotine Polacrilex (Nicorette Gum) 1 each PRN Q1HR PRN BC SMOKING CESSATION; Start 02/15/17 at 22:00 Magnesium Sulfate/ Dextrose 50 ml @ 25 mls/hr 1X ONCE IV ; Start 02/16/17 at 08 :00; Stop 02/16/17 at 09:59 Active Scripts Active Amoxicillin 875 Mg Tablet 1 Tab PO BID Naproxen 500 Mg Tablet.dr 1 Tab PO BID Cyclobenzaprine Hcl 10 Mg Tablet 1 Tab PO TID Medrol (Methylprednisolone) 4 Mg Tab.ds.pk 1 Pkg PO UD Cyclobenzaprine Hcl 10 Mg Tablet 1 Tab PO TID Vitals/I & O Vital Sign - Last 24 Hours 02/15/17 02/15/17 02/15/17 02/15/17 18:40 18:55 19:25 19:55 Temp 97.8 97.8 Pulse 120 122 102 96 Resp 20 B/P (MAP) 128/105 (113) 114/92 (99) 146/95 (112) 145/95 (112) Pulse Ox 99 O2 Delivery Room Air 02/15/17 02/15/17 02/15/17 02/15/17 20:02 20:25 20:40 21:20 Temp 97.3 97.3 Pulse 87 82 74 Resp 20 B/P (MAP) 153/90 (111) 165/92 (116) 158/105 (122) Pulse Ox 100 O2 Delivery Room Air Room Air 02/15/17 02/15/17 22:29 23:00 Temp 98.0 98.0 Pulse 89 Resp 20 B/P (MAP) 124/97 (106) Pulse Ox 100 O2 Delivery Room Air Room Air Intake and Output 02/15/17 02/15/17 02/16/17 15:00 23:00 07:00 Intake Total 410 ml Output Total 400 ml Balance 10 ml GILLIAN BAKER MD February 16, 2017 08:21
--- NOTE | 2017-02-16 08:38 | PDOC2 ---
GI CONSULT Reason For Consult: Epigastric pain, concern for PUD HPI: HPI: 56 y/o AA female who tells me she saw her PCP (can't remember name) for back pain yesterday, was told her cholesterol (?) was low and sent to ER, admitted for hypokalemia. Says abd pain, vomiting, and diarrhea didn't start until she got here. Usually has no problems w/ vomiting or diarrhea, although does have occasional periumbilical pain which occurs randomly. Has been spitting up phlegm, no vomiting since admission. Loose stool this a.m. Pain is better but not resolved, mostly lower now. Heartburn once weekly, untreated. Usually 2 formed stools daily. H/o chronic back pain, takes hydrocodone and Tylenol, no NSAIDs. Denies dysphagia, weight loss, change in appetite, constipation, hematemesis, melena, hematochezia. Tells me 3 beers daily, marijuana (trying to quit), 1/2 ppd. No previous EGD/colon. Significant labs: Hgb from 13 to 9.4, potassium 2.6 to 4.3, bili 1.9, AST 66, ALT 55, Alk Phos 219, lipase 53. Tox + alc, cannabinoids. Abd US w/ cholelithiasis, gallbladder sludge, hepatic steatosis. PMH: PMH: heartburn, back pain, CAD w/ 3 stents (says here at [facility]), brain surgery at , C -section x 2 FH: Family History: No pertinent hx Social History: Smoke: <1 pack per day ALCOHOL: heavy (3 beers daily) Drugs: Marijuana ROS: GEN: Denies fevers, chills, sweats HEENT: Denies blurred vision, sore throat CV: Denies chest pain RESP: Denies shortness of air, cough GI: Per HPI : Denies hematuria, dysuria ENDO: Denies weight changes NEURO: Denies confusion, dizziness MSK: +back pain SKIN: Denies jaundice, pruritus Vitals: Vitals: Vital Signs Date Time Temp Pulse Resp B/P (MAP) Pulse Ox O2 Delivery O2 Flow Rate FiO2 02/15/17 23:00 98.0 89 20 124/97 (106) 100 Room Air 98.0 Labs: Labs: Laboratory Tests Test 02/15/17 19:02 02/15/17 19:29 02/16/17 03:20 02/16/17 05:30 Urine Collection Type Unknown Urine Color [place] Urine Clarity Turbid Urine pH 5.5 Urine Specific [place] 1.020 Urine Protein Negative mg/dL (NEG-TRACE) Urine Glucose (UA) Negative mg/dL (NEG) Urine Ketones (Stick) Trace mg/dL (NEG) Urine Blood Negative (NEG) Urine Nitrite Negative (NEG) Urine Bilirubin Moderate (NEG) Urine Urobilinogen Dipstick 2.0 mg/dL (0.2 mg/dL) Urine Leukocyte Esterase Negative (NEG) Urine RBC Occ /HPF (0-2) Urine WBC 1-4 /HPF (0-4) Urine Squamous Epithelial Cells Many /LPF Urine Bacteria Few /HPF (0-FEW) Urine Hyaline Casts Many /HPF Urine Mucus Marked /LPF Urine Opiates Screen Neg (NEG) Urine Methadone Screen Neg (NEG) Urine Barbiturates Neg (NEG) Urine Phencyclidine Screen Neg (NEG) Urine Amphetamine/Methamphetamine Neg (NEG) Urine Benzodiazepines Screen Neg (NEG) Urine Cocaine Screen Neg (NEG) Urine Cannabinoids Screen Pos (NEG) Urine Ethyl Alcohol Pos (NEG) White Blood Count 7.6 x10^3/uL (4.0-11.0) 7.1 x10^3/uL (4.0-11.0) Red Blood Count 4.00 x10^6/uL (3.50-5.40) 2.95 x10^6/uL (3.50-5.40) Hemoglobin 13.0 g/dL (12.0-15.5) 9.4 g/dL (12.0-15.5) Hematocrit 37.7 % (36.0-47.0) 27.9 % (36.0-47.0) Mean Corpuscular Volume 94 fL (79-100) 95 fL (79-100) Mean Corpuscular Hemoglobin 32 pg (25-35) 32 pg (25-35) Mean Corpuscular Hemoglobin Concent 34 g/dL (31-37) 34 g/dL (31-37) Red Cell Distribution Width 15.3 % (11.5-14.5) 15.8 % (11.5-14.5) Platelet Count 265 x10^3/uL (140-400) 202 x10^3/uL (140-400) Neutrophils (%) (Auto) 70 % (31-73) 50 % (31-73) Lymphocytes (%) (Auto) 17 % (24-48) 37 % (24-48) Monocytes (%) (Auto) 12 % (0-9) 12 % (0-9) Eosinophils (%) (Auto) 0 % (0-3) 0 % (0-3) Basophils (%) (Auto) 0 % (0-3) 1 % (0-3) Neutrophils # (Auto) 5.3 x10^3uL (1.8-7.7) 3.5 x10^3uL (1.8-7.7) Lymphocytes # (Auto) 1.3 x10^3/uL (1.0-4.8) 2.7 x10^3/uL (1.0-4.8) Monocytes # (Auto) 0.9 x10^3/uL (0.0-1.1) 0.8 x10^3/uL (0.0-1.1) Eosinophils # (Auto) 0.0 x10^3/uL (0.0-0.7) 0.0 x10^3/uL (0.0-0.7) Basophils # (Auto) 0.0 x10^3/uL (0.0-0.2) 0.1 x10^3/uL (0.0-0.2) Sodium Level 131 mmol/L (136-145) 131 mmol/L (136-145) Potassium Level 2.6 mmol/L (3.5-5.1) 4.3 mmol/L (3.5-5.1) Chloride Level 92 mmol/L (98-107) 98 mmol/L (98-107) Carbon Dioxide Level 26 mmol/L (21-32) 23 mmol/L (21-32) Anion Gap 13 (6-14) 10 (6-14) Blood Urea Nitrogen 5 mg/dL (7-20) 8 mg/dL (7-20) Creatinine 0.9 mg/dL (0.6-1.0) 0.7 mg/dL (0.6-1.0) Estimated GFR (Cockcroft-Gault) 79.0 105.5 BUN/Creatinine Ratio 6 (6-20) Glucose Level 123 mg/dL (70-99) 63 mg/dL (70-99) Calcium Level 9.2 mg/dL (8.5-10.1) 7.9 mg/dL (8.5-10.1) Magnesium Level 1.7 mg/dL (1.8-2.4) 1.6 mg/dL (1.8-2.4) Total Bilirubin 1.9 mg/dL (0.2-1.0) Aspartate Amino Transf (AST/SGOT) 66 U/L (15-37) Alanine Aminotransferase (ALT/SGPT) 55 U/L (14-59) Alkaline Phosphatase 219 U/L (46-116) Total Protein 7.5 g/dL (6.4-8.2) Albumin 3.1 g/dL (3.4-5.0) Albumin/Globulin Ratio 0.7 (1.0-1.7) Lipase 53 U/L (73-393) Ethyl Alcohol Level < 10 mg/dL (0-10) Prothrombin Time 13.8 SEC (11.7-14.0) Prothromb Time International Ratio 1.1 (0.8-1.1) Phosphorus Level 2.3 mg/dL (2.6-4.7) Allergies: Coded Allergies: No Known Drug Allergies (Unverified , 11/25/14) Medications: Current Medications Medications (Trade) Dose Ordered Sig/Zulma Route PRN Reason Start Time Stop Time Status Last Admin Dose Admin Fentanyl Citrate (Fentanyl 2ml Vial) 50 mcg 1X ONCE IV 02/15/17 19:30 02/15/17 19:31 DC 02/15/17 20:02 Ondansetron HCl (Zofran) 4 mg 1X ONCE IV 02/15/17 19:30 02/15/17 19:31 DC 02/15/17 20:00 Sodium Chloride 1,000 ml @ 1,000 mls/hr 1X ONCE IV 02/15/17 19:45 02/15/17 20:44 DC 02/15/17 19:59 Famotidine (Pepcid) 20 mg 1X ONCE IVP 02/15/17 20:00 02/15/17 20:08 DC 02/15/17 20:16 Potassium Chloride (Klor-Con) 40 meq 1X ONCE PO 02/15/17 20:00 02/15/17 20:08 DC 02/15/17 20:16 Potassium Chloride 50 ml @ 50 mls/hr 1X ONCE IV 02/15/17 20:00 02/15/17 20:59 DC 02/15/17 20:16 Potassium Chloride/Sodium Chloride 1,000 ml @ 100 mls/hr Q10H IV 02/15/17 22:00 02/16/17 08:01 DC 02/16/17 07:48 Enoxaparin Sodium (Lovenox 40mg Syringe) 40 mg Q24H SQ 02/15/17 22:00 02/15/17 22:05 Multivitamins 10 ml/Folic Acid 1 mg/Thiamine HCl 100 mg/Dextrose/ Sodium Chloride 1,011.2 ml @ 1,000 mls/ hr 1X ONCE IV 02/15/17 22:00 02/15/17 23:00 DC 02/15/17 22:04 Potassium Chloride (Klor-Con) 40 meq 1X ONCE PO 02/15/17 22:00 02/15/17 22:01 DC 02/15/17 22:04 Imaging: Imaging: Abd US 02/15/17 IMPRESSION - Cholelithiasis and gallbladder sludge. There no secondary signs of acute cholecystitis. - Mild hepatic steatosis. PE: GEN: NAD, thin HEENT: Atraumatic, PERRL LUNGS: CTAB anteriorly HEART: RRR ABD: NABS, S/ND, LUQ to LLQ to RLQ discomfort EXTREMITY: No edema SKIN: No rashes, no jaundice NEURO/PSYCH: A & O 3 A/P: A/P: Hypokalemia - resolved Vomiting, diarrhea - improved -says began yesterday w/o precipitating events; vomited twice, diarrhea once -has been coughing up phlegm, no further vomiting -loose stool this morning Abd pain - improved -random occurrences of periumbilical pain, mostly lower this morning Heartburn -once weekly, untreated ---> on Pepcid here -no previous EGD CRC screen -no previous colonoscopy Cholelithiasis, gallbladder sludge Substance abuse -alcohol, tob, marijuana Abnormal LFTs -bili 1.9, Alk Phos 219, AST 66 -hepatic steatosis on US Anemia -no baseline for comparison, denies obvious bleeding -- Stool specimen sent to lab. Surg consulted re: cholelithiasis/sludge. Continue H2 cornelius, await stool tests and surg recs. Will check anemia parameters, EGD/colon as outpt. YOLANDA GUZMAN February 16, 2017 08:38
[2017-02-16] MEDS ORDERED: POTASSIUM CHLORIDE 20 MEQ TABLET.ER. PO SCH (09:00)
[2017-02-16] MEDS: SENNOSIDES/DOCUSATE 8.6/50MG TABLET. PO SCH ×2 (09:00→20:16)
--- NOTE | 2017-02-16 09:12 | PDOC2 ---
TIFFANY MUNOZ LETTUCE CUTTER 02/16/17 0911: CONSULT Date of Consult Date of Consult DATE: 02/16/17 TIME: 08:58 Reason for Consult Reason for Consult: abd pain Referring Physician Referring Physician: Er Identification/Chief Complaint Chief Complaint abd pain Source Source: Chart review, Patient History of Present Illness Reason for Visit: She reports she went to her PCP yesterday for low back pain and they sent her to ER for low cholesterol--when she got here she reports having abdominal pain and vomiting. She tells me shes been having loose stools at home for about a week(although only once or twice a day). She occasionally has some epigastric discomfort but not like this. Denies difficulty eating. At this time pain is diffuse but greatest to epigastric area Past Medical History Cardiovascular: CAD, Other (1 stent) Heme/Onc: Other (brain clot) Past Surgical History Past Surgical History: , Other (brain sx, cardiac cath) Family History Family History: No Significant, Family History Unknown, Other (reviewed, she does not know for sure) Social History <1 pack per day ALCOHOL: heavy (3 beers daily) Drugs: Marijuana Lives: with Family Current Problem List Problem List Problems Medical Problems: (1) Abdominal pain Status: Acute (2) Hypokalemia Status: Acute Current Medications Current Medications Current Medications Fentanyl Citrate (Fentanyl 2ml Vial) 50 mcg 1X ONCE IV Last administered on 20:02; Start 02/15/17 at 19:30; Stop 02/15/17 at 19:31; Status DC Ondansetron HCl (Zofran) 4 mg 1X ONCE IV Last administered on 02/15/17 20:00 ; Start 02/15/17 at 19:30; Stop 02/15/17 at 19:31; Status DC Sodium Chloride 1,000 ml @ 1,000 mls/hr 1X ONCE IV Last administered on 19:59; Start 02/15/17 at 19:45; Stop 02/15/17 at 20:44; Status DC Famotidine (Pepcid) 20 mg 1X ONCE IVP Last administered on 02/15/17 20:16; Start 02/15/17 at 20:00; Stop 02/15/17 at 20:08; Status DC Potassium Chloride (Klor-Con) 40 meq 1X ONCE PO Last administered on 20:16; Start 02/15/17 at 20:00; Stop 02/15/17 at 20:08; Status DC Potassium Chloride 50 ml @ 50 mls/hr 1X ONCE IV Last administered on 20:16; Start 02/15/17 at 20:00; Stop 02/15/17 at 20:59; Status DC Potassium Chloride/Sodium Chloride 1,000 ml @ 100 mls/hr Q10H IV Last administered on 02/16/17 07:48; Start 02/15/17 at 22:00; Stop 02/16/17 at 08:01 ; Status DC Ondansetron HCl (Zofran) 4 mg PRN Q6HRS PRN IV NAUSEA/VOMITING; Start 02/15/17 at 21:30 Prochlorperazine Edisylate (Compazine) 10 mg PRN Q6HRS PRN IV NAUSEA/VOMITING; Start 02/15/17 at 21:30 Prochlorperazine (Compazine) 25 mg PRN Q12HR PRN DC NAUSEA/VOMITING; Start at 21:30 Al Hydroxide/Mg Hydroxide (Mylanta Plus Xs) 30 ml PRN Q3HRS PRN PO HEARTBURN / GAS; Start 02/15/17 at 21:30 Calcium Carbonate/ Glycine (Tums) 500 mg PRN Q3HRS PRN PO UPSET STOMACH; Start 02/15/17 at 21:30 Zolpidem Tartrate (Ambien) 5 mg PRN QHS PRN PO INSOMNIA, MAY REPEAT IN 1HR; Start 02/15/17 at 21:30 Oxycodone HCl (Roxicodone) 5 mg PRN Q3HRS PRN PO BREAKTHROUGH PAIN; Start 02/15 at 21:30 Morphine Sulfate 1 mg PRN Q1HR PRN IV MODERATE PAIN; Start 02/15/17 at 21:30 Ketorolac Tromethamine (Toradol) 15 mg PRN Q6HRS PRN IV MODERATE PAIN; Start at 21:30; Stop 02/20/17 at 21:29 Acetaminophen (Tylenol) 650 mg PRN Q6HRS PRN PO Headaches, Temp > 101.5F; Start 02/15/17 at 21:30 Senna/Docusate Sodium (Senna Plus) 1 tab BID PO ; Start 02/16/17 at 09:00 Magnesium Hydroxide (Milk Of Magnesia) 2,400 mg PRN Q12HR PRN PO CONSTIPATION; Start 02/15/17 at 21:30 Bisacodyl (Dulcolax Supp) 10 mg PRN DAILY PRN DC CONSTIPATION; Start 02/15/17 at 21:30 Enoxaparin Sodium (Lovenox 40mg Syringe) 40 mg Q24H SQ Last administered on 22:05; Start 02/15/17 at 22:00 Nicotine (Nicoderm Cq 21mg) 1 patch PRN DAILY PRN TD SMOKING CESSATION; Start 02/15/17 at 21:30 Labetalol HCl (Normodyne) 10 mg PRN Q2HR PRN IVP HYPERTENSION, SEE COMMENTS; Start 02/15/17 at 21:30 Ondansetron HCl (Zofran) 4 mg PRN Q8HRS PRN IV NAUSEA/VOMITING; Start 02/15/17 at 21:30; Stop 02/16/17 at 21:29; Status UNV Multivitamins 10 ml/Folic Acid 1 mg/Thiamine HCl 100 mg/Dextrose/ Sodium Chloride 1,011.2 ml @ 1,000 mls/ hr 1X ONCE IV Last administered on 22:04; Start 02/15/17 at 22:00; Stop 02/15/17 at 23:00; Status DC Famotidine (Pepcid) 20 mg BID IVP ; Start 02/16/17 at 09:00 Potassium Chloride (Klor-Con) 40 meq 1X ONCE PO Last administered on 22:04; Start 02/15/17 at 22:00; Stop 02/15/17 at 22:01; Status DC Potassium Chloride (Klor-Con) 40 meq DAILY PO ; Start 02/16/17 at 09:00; Stop at 09:00; Status DC Thiamine Mononitrate (Vitamin B-1) 100 mg DAILY PO ; Start 02/16/17 at 09:00 Folic Acid (Folic Acid) 1 mg DAILY PO ; Start 02/16/17 at 09:00 Vitamin B Complex (Matt B) 1 tab DAILY PO ; Start 02/16/17 at 09:00 Chlordiazepoxide (Librium) 25 mg PRN Q6HRS PRN PO ANXIETY / AGITATION; Start at 21:45 Nicotine (Nicoderm Cq 21mg) 1 patch PRN DAILY PRN TD SMOKING CESSATION; Start 02/15/17 at 22:00; Status UNV Nicotine Polacrilex (Nicorette Gum) 1 each PRN Q1HR PRN BC SMOKING CESSATION; Start 02/15/17 at 22:00 Magnesium Sulfate/ Dextrose 50 ml @ 25 mls/hr 1X ONCE IV ; Start 02/16/17 at 08 :00; Stop 02/16/17 at 09:59 Active Scripts Active Amoxicillin 875 Mg Tablet 1 Tab PO BID Naproxen 500 Mg Tablet.dr 1 Tab PO BID Cyclobenzaprine Hcl 10 Mg Tablet 1 Tab PO TID Medrol (Methylprednisolone) 4 Mg Tab.ds.pk 1 Pkg PO UD Cyclobenzaprine Hcl 10 Mg Tablet 1 Tab PO TID Allergies Allergies: Coded Allergies: No Known Drug Allergies (Unverified , 11/25/14) ROS General: YES: Chills, No: Other (fevers) PSYCHOLOGICAL ROS: No: Anxiety, Depression Eyes: No Blurry vision, No Double vision HEENT: No: Heacaches, Sore Throat Hematological and Lymphatic: No: Bleeding Problems, Blood Clots Respiratory: No: Cough, Shortness of breath Cardiovascular: No Chest Pain, No Palpitations Gastrointestinal: Yes Other (see hpi), No Hematochezia Genitourinary: No Dysuria, No Hematuria Musculoskeletal: No Joint Pain, No Muscle Pain Neurological: No Impaired Coord/balance, No Numbness/Tingling Skin: No Pruritus, No Rash Physical Exam General: Alert, Oriented X3, Cooperative, No acute distress HEENT: PERRLA, Mucous membr. moist/pink Lungs: Clear to auscultation, Normal air movement Heart: Regular rate, Normal S1, Normal S2, No murmurs Abdomen: Soft, Other (ND, diffuse tenderness -greatest to epigastric, LLQ) Extremities: No clubbing, No cyanosis Skin: Other (lesions, scabs to BLEs) Neuro: Normal speech, Sensation intact Psych/Mental Status: Mental status NL, Mood NL MUSCULOSKELETAL: No deformity, No swelling Vitals VITALS Vital Signs Date Time Temp Pulse Resp B/P (MAP) Pulse Ox O2 Delivery O2 Flow Rate FiO2 02/15/17 23:00 98.0 89 20 124/97 (106) 100 Room Air 98.0 Labs Labs Laboratory Tests Test 02/15/17 19:02 02/15/17 19:29 02/16/17 03:20 02/16/17 05:30 Urine Collection Type Unknown Urine Color [place] Urine Clarity Turbid Urine pH 5.5 Urine Specific [place] 1.020 Urine Protein Negative mg/dL (NEG-TRACE) Urine Glucose (UA) Negative mg/dL (NEG) Urine Ketones (Stick) Trace mg/dL (NEG) Urine Blood Negative (NEG) Urine Nitrite Negative (NEG) Urine Bilirubin Moderate (NEG) Urine Urobilinogen Dipstick 2.0 mg/dL (0.2 mg/dL) Urine Leukocyte Esterase Negative (NEG) Urine RBC Occ /HPF (0-2) Urine WBC 1-4 /HPF (0-4) Urine Squamous Epithelial Cells Many /LPF Urine Bacteria Few /HPF (0-FEW) Urine Hyaline Casts Many /HPF Urine Mucus Marked /LPF Urine Opiates Screen Neg (NEG) Urine Methadone Screen Neg (NEG) Urine Barbiturates Neg (NEG) Urine Phencyclidine Screen Neg (NEG) Urine Amphetamine/Methamphetamine Neg (NEG) Urine Benzodiazepines Screen Neg (NEG) Urine Cocaine Screen Neg (NEG) Urine Cannabinoids Screen Pos (NEG) Urine Ethyl Alcohol Pos (NEG) White Blood Count 7.6 x10^3/uL (4.0-11.0) 7.1 x10^3/uL (4.0-11.0) Red Blood Count 4.00 x10^6/uL (3.50-5.40) 2.95 x10^6/uL (3.50-5.40) Hemoglobin 13.0 g/dL (12.0-15.5) 9.4 g/dL (12.0-15.5) Hematocrit 37.7 % (36.0-47.0) 27.9 % (36.0-47.0) Mean Corpuscular Volume 94 fL (79-100) 95 fL (79-100) Mean Corpuscular Hemoglobin 32 pg (25-35) 32 pg (25-35) Mean Corpuscular Hemoglobin Concent 34 g/dL (31-37) 34 g/dL (31-37) Red Cell Distribution Width 15.3 % (11.5-14.5) 15.8 % (11.5-14.5) Platelet Count 265 x10^3/uL (140-400) 202 x10^3/uL (140-400) Neutrophils (%) (Auto) 70 % (31-73) 50 % (31-73) Lymphocytes (%) (Auto) 17 % (24-48) 37 % (24-48) Monocytes (%) (Auto) 12 % (0-9) 12 % (0-9) Eosinophils (%) (Auto) 0 % (0-3) 0 % (0-3) Basophils (%) (Auto) 0 % (0-3) 1 % (0-3) Neutrophils # (Auto) 5.3 x10^3uL (1.8-7.7) 3.5 x10^3uL (1.8-7.7) Lymphocytes # (Auto) 1.3 x10^3/uL (1.0-4.8) 2.7 x10^3/uL (1.0-4.8) Monocytes # (Auto) 0.9 x10^3/uL (0.0-1.1) 0.8 x10^3/uL (0.0-1.1) Eosinophils # (Auto) 0.0 x10^3/uL (0.0-0.7) 0.0 x10^3/uL (0.0-0.7) Basophils # (Auto) 0.0 x10^3/uL (0.0-0.2) 0.1 x10^3/uL (0.0-0.2) Sodium Level 131 mmol/L (136-145) 131 mmol/L (136-145) Potassium Level 2.6 mmol/L (3.5-5.1) 4.3 mmol/L (3.5-5.1) Chloride Level 92 mmol/L (98-107) 98 mmol/L (98-107) Carbon Dioxide Level 26 mmol/L (21-32) 23 mmol/L (21-32) Anion Gap 13 (6-14) 10 (6-14) Blood Urea Nitrogen 5 mg/dL (7-20) 8 mg/dL (7-20) Creatinine 0.9 mg/dL (0.6-1.0) 0.7 mg/dL (0.6-1.0) Estimated GFR (Cockcroft-Gault) 79.0 105.5 BUN/Creatinine Ratio 6 (6-20) Glucose Level 123 mg/dL (70-99) 63 mg/dL (70-99) Calcium Level 9.2 mg/dL (8.5-10.1) 7.9 mg/dL (8.5-10.1) Magnesium Level 1.7 mg/dL (1.8-2.4) 1.6 mg/dL (1.8-2.4) Total Bilirubin 1.9 mg/dL (0.2-1.0) Aspartate Amino Transf (AST/SGOT) 66 U/L (15-37) Alanine Aminotransferase (ALT/SGPT) 55 U/L (14-59) Alkaline Phosphatase 219 U/L (46-116) Total Protein 7.5 g/dL (6.4-8.2) Albumin 3.1 g/dL (3.4-5.0) Albumin/Globulin Ratio 0.7 (1.0-1.7) Lipase 53 U/L (73-393) Ethyl Alcohol Level < 10 mg/dL (0-10) Prothrombin Time 13.8 SEC (11.7-14.0) Prothromb Time International Ratio 1.1 (0.8-1.1) Phosphorus Level 2.3 mg/dL (2.6-4.7) Laboratory Tests Test 02/15/17 19:02 02/15/17 19:29 02/16/17 03:20 02/16/17 05:30 Urine Collection Type Unknown Urine Color [place] Urine Clarity Turbid Urine pH 5.5 Urine Specific [place] 1.020 Urine Protein Negative mg/dL (NEG-TRACE) Urine Glucose (UA) Negative mg/dL (NEG) Urine Ketones (Stick) Trace mg/dL (NEG) Urine Blood Negative (NEG) Urine Nitrite Negative (NEG) Urine Bilirubin Moderate (NEG) Urine Urobilinogen Dipstick 2.0 mg/dL (0.2 mg/dL) Urine Leukocyte Esterase Negative (NEG) Urine RBC Occ /HPF (0-2) Urine WBC 1-4 /HPF (0-4) Urine Squamous Epithelial Cells Many /LPF Urine Bacteria Few /HPF (0-FEW) Urine Hyaline Casts Many /HPF Urine Mucus Marked /LPF Urine Opiates Screen Neg (NEG) Urine Methadone Screen Neg (NEG) Urine Barbiturates Neg (NEG) Urine Phencyclidine Screen Neg (NEG) Urine Amphetamine/Methamphetamine Neg (NEG) Urine Benzodiazepines Screen Neg (NEG) Urine Cocaine Screen Neg (NEG) Urine Cannabinoids Screen Pos (NEG) Urine Ethyl Alcohol Pos (NEG) White Blood Count 7.6 x10^3/uL (4.0-11.0) 7.1 x10^3/uL (4.0-11.0) Red Blood Count 4.00 x10^6/uL (3.50-5.40) 2.95 x10^6/uL (3.50-5.40) Hemoglobin 13.0 g/dL (12.0-15.5) 9.4 g/dL (12.0-15.5) Hematocrit 37.7 % (36.0-47.0) 27.9 % (36.0-47.0) Mean Corpuscular Volume 94 fL (79-100) 95 fL (79-100) Mean Corpuscular Hemoglobin 32 pg (25-35) 32 pg (25-35) Mean Corpuscular Hemoglobin Concent 34 g/dL (31-37) 34 g/dL (31-37) Red Cell Distribution Width 15.3 % (11.5-14.5) 15.8 % (11.5-14.5) Platelet Count 265 x10^3/uL (140-400) 202 x10^3/uL (140-400) Neutrophils (%) (Auto) 70 % (31-73) 50 % (31-73) Lymphocytes (%) (Auto) 17 % (24-48) 37 % (24-48) Monocytes (%) (Auto) 12 % (0-9) 12 % (0-9) Eosinophils (%) (Auto) 0 % (0-3) 0 % (0-3) Basophils (%) (Auto) 0 % (0-3) 1 % (0-3) Neutrophils # (Auto) 5.3 x10^3uL (1.8-7.7) 3.5 x10^3uL (1.8-7.7) Lymphocytes # (Auto) 1.3 x10^3/uL (1.0-4.8) 2.7 x10^3/uL (1.0-4.8) Monocytes # (Auto) 0.9 x10^3/uL (0.0-1.1) 0.8 x10^3/uL (0.0-1.1) Eosinophils # (Auto) 0.0 x10^3/uL (0.0-0.7) 0.0 x10^3/uL (0.0-0.7) Basophils # (Auto) 0.0 x10^3/uL (0.0-0.2) 0.1 x10^3/uL (0.0-0.2) Sodium Level 131 mmol/L (136-145) 131 mmol/L (136-145) Potassium Level 2.6 mmol/L (3.5-5.1) 4.3 mmol/L (3.5-5.1) Chloride Level 92 mmol/L (98-107) 98 mmol/L (98-107) Carbon Dioxide Level 26 mmol/L (21-32) 23 mmol/L (21-32) Anion Gap 13 (6-14) 10 (6-14) Blood Urea Nitrogen 5 mg/dL (7-20) 8 mg/dL (7-20) Creatinine 0.9 mg/dL (0.6-1.0) 0.7 mg/dL (0.6-1.0) Estimated GFR (Cockcroft-Gault) 79.0 105.5 BUN/Creatinine Ratio 6 (6-20) Glucose Level 123 mg/dL (70-99) 63 mg/dL (70-99) Calcium Level 9.2 mg/dL (8.5-10.1) 7.9 mg/dL (8.5-10.1) Magnesium Level 1.7 mg/dL (1.8-2.4) 1.6 mg/dL (1.8-2.4) Total Bilirubin 1.9 mg/dL (0.2-1.0) Aspartate Amino Transf (AST/SGOT) 66 U/L (15-37) Alanine Aminotransferase (ALT/SGPT) 55 U/L (14-59) Alkaline Phosphatase 219 U/L (46-116) Total Protein 7.5 g/dL (6.4-8.2) Albumin 3.1 g/dL (3.4-5.0) Albumin/Globulin Ratio 0.7 (1.0-1.7) Lipase 53 U/L (73-393) Ethyl Alcohol Level < 10 mg/dL (0-10) Prothrombin Time 13.8 SEC (11.7-14.0) Prothromb Time International Ratio 1.1 (0.8-1.1) Phosphorus Level 2.3 mg/dL (2.6-4.7) Images Images US reviewed Assessment/Plan Assessment/Plan abdominal pain, diarrhea hx of alcohol and drug abuse US with cholelithiasis, sludge--no findings of cholecystitis, wbc normal symptoms and exam not classic for cholelithiasis stool culture pending repeat LFTS GI consulted consider CT abd/pelvis ISRAEL FOSTER MD 02/16/17 1449: CONSULT Allergies Allergies: Coded Allergies: No Known Drug Allergies (Unverified , 11/25/14) Assessment/Plan Assessment/Plan Agree with above assessment/plan, GI consulted TIFFANY MUNOZ APRN February 16, 2017 09:11 ISRAEL FOSTER MD February 16, 2017 14:49
[2017-02-16 09:15] LABS: % SAT IRON 90 % (15-34); IRON,SERUM 179 ug/dL (50-170)
[2017-02-16 09:34] LABS: ALBUMIN 2.5 g/dL (3.4-5.0); DIRECT BILIRUBIN 0.7 mg/dL (0.0-0.2); TOTAL BILIRUBIN 1.5 mg/dL (0.2-1.0); TOTAL PROTEIN 6.2 g/dL (6.4-8.2)
[2017-02-16 09:44] LABS: VITAMIN-B12 892 pg/mL (247-911)
[2017-02-16 10:20] LABS: FOLATE > 24.00 ng/ml (3.2-20.0)
[2017-02-16] MEDS ORDERED: IOHEXOL 300 MG/ML 75 ML VIAL IV ONE (10:30)
[2017-02-16] MEDS ORDERED: CONTRAST GIVEN MC PRN ×2 (10:30→10:45)
[2017-02-16 11:00] VITALS: BP 118/85
[2017-02-16] MEDS ORDERED: IOHEXOL 240 MG/ML 50ML VIAL. PO ONE (11:00)
[2017-02-16 15:00] VITALS: BP 125/85
--- NOTE | 2017-02-16 16:05 | RAD ---
CT of the abdomen and pelvis with contrast, 02/16/2017: History: Weight loss, abdominal pain Multidetector CT imaging was performed following oral and IV administration of contrast. The liver is of lower than normal density in a diffuse pattern. No hepatic mass or bile duct dilatation is seen. There are couple of tiny radiopacities along the posterior wall of the gallbladder suggesting small calculi. The gallbladder martin are not thickened. No pericholecystic edema is seen. The pancreas is unremarkable. The spleen is of normal size. No renal abnormality is detected. There is moderate aortoiliac calcific plaquing without evidence of aneurysm. No abdominal or pelvic adenopathy is seen. The bowel loops are not dilated. There appears to be mild colonic mural thickening involving primarily the right colon. Incomplete colonic distention may be contributing to this appearance. There is also mural thickening involving a segment of jejunum in the left midabdomen as best seen on coronal image 19 of series #4. A small amount of free fluid is present in the pelvis. No free air is evident in the abdomen or pelvis. IMPRESSION: 1. Mild mural thickening involving the right colon as well as a loop of jejunum. The findings suggest nonspecific colitis/enteritis. 2. Small amount of free fluid in the pelvis. 3. Cholelithiasis. 4. Hepatic steatosis. PQRS Compliance Statement: One or more of the following individualized dose reduction techniques were utilized for this examination: 1. Automated exposure control 2. Adjustment of the mA and/or kV according to patient size 3. Use of iterative reconstruction technique
[2017-02-16] MEDS: FOLIC ACID 1 MG TABLET. PO SCH (16:44)
[2017-02-16] MEDS: THIAMINE 100 MG TABLET. PO SCH (16:44)
[2017-02-16] MEDS: oxyCODONE IR 5 MG TABLET PO PRN (16:44)
[2017-02-16] MEDS: VITAMIN B COMPLEX TABLET. PO SCH (16:44)
[2017-02-16] MEDS: FAMOTIDINE 20 MG/2 ML VIAL IVP SCH ×2 (16:45→20:54)
[2017-02-16 19:00] VITALS: BP 98/69
[2017-02-16] MEDS: ENOXAPARIN 40 MG/0.4 ML SYRINGE. SQ SCH (22:26)
[2017-02-16 23:28] VITALS: BP 98/71
--- NOTE | 2017-02-16 23:51 | ACF ---
Admission Forms Criteria ABDOMINAL PAIN Clinical Indications for Admission to Inpatient Care (Place 'X' for any and all applicable criteria): Admission is indicated for ANY ONE of the following(1)(2)(3)(4)(5): [X ]I. Inpatient admission required rather than observation care (Also use Abdominal Pain: Observation Care, as appropriate) because of ANY ONE of the following: [ ]a) Severe pain requiring acute inpatient management [X ]b) Identification of etiology/finding that requires inpatient care (eg, aortic dissection, free air) [ ]c) Absent bowel sounds with complete ileus(6) [ ]d) Suspected toxic megacolon [ ]e) Severe electrolyte abnormalities requiring inpatient care [ ]f) High fever or infection requiring inpatient admission as indicated by ANY ONE of following(7)(8): [ ] i) Appropriate outpatient or observational care antimicrobial treatment unavailable, not effective, or not feasible [ ] ii) Documented bacteremia [ ] iii) Temperature > 104.9 degrees F (oral) [ ] iv) T >103.1 F (oral) or < 96.8 F(rectal) that does not respond to all emergency treatment measures [ ]g) Signs of intestinal obstruction [B] [ ]h) Hemodynamic instability [ ]i) IV fluid to replace significant ongoing losses (greater than 3 L/m2 per day) (12)(13) [ ]j) Percutaneous or open drainage (eg, abscess, biliary tract ) procedures [ ]k) Parenteral nutrition regimen that must be implemented on inpatient basis [ ]l) Other condition,treatment or monitoring requiring inpatient admission. [ ]II. Peritoneal signs present [ ]III. Surgery needed that cannot be performed on an ambulatory basis. [ ]IV. Evaluation requires patient to not eat or drink for extended period ( eg, more than 24 hours). [ ]V. Contraindications and/or Inappropriate clinical situations for Observational Care in patients with abdominal pain, when ANY ONE of the following is required: [ ]a) Thorough evaluation is required to prevent catastrophic events due to delays in diagnosing (e.g.Mesenteric ischemia) 1,3 [ ]b) Patient with severe pathology or with chronic symptoms unlikely to improve in the ED stay (3) [ ]. General contraindications and/or Inappropriate clinical situations for Observational Care in patients with abdominal pain, when ANY ONE of the following is required: [ ]a) Prediction of prolongation of LOS based on ANY ONE of the following may be considered as a contraindication for observational care 2, 3, 4, 5, 6, 7, 8, 9, 10, 11 [ ]i) Age > 65 yrs. [ ]ii) Patient arriving by ambulance [ ]iii) Patient with high acuity [ ]iv) Patient requiring vital sign monitoring [ ]v) Patient on IV medication [ ]b) Systolic blood pressures 180mmHg 3,12 [ ]c) Patient with altered mental status including delirium and other alteration of consciousness, (3) [ ]d) Patient whose discharge disposition will be to a [place] [facility] home or rehabilitation home should not be managed in Emergency Department Observation Unit. CMS rule requires 3 days hospital stay before such placement.3,13 [ ]e) Patient with failure to thrive due to broad array of etiologies 3,16,17 [ ]f) Inability to ambulate 3,14 Extended stay beyond goal length of stay may be needed for(2)(3): [ ]a) Persistent abdominal pain with suspected intra-abdominal process [ ]b) Diagnosed condition requiring continued stay (e.g., pancreatitis, complicated diverticulitis) [ ]c) Surgery (e.g., colectomy) The original [facility] content created by [employer] has been revised. The portions of the content which have been revised are identified through the use of italic text or in bold, and [facility] has neither reviewed nor approved the modified material.All other unmodified content is copyright [employer] [facility]. Please see references footnoted in the original [facility] edition 2016 Admission Criteria Met?: Yes ARCHANA LOOMIS February 16, 2017 23:51
[2017-02-17 05:40] LABS: BASO # 0.1 x10^3/uL (0.0-0.2); BASO % 1 % (0-3); EOS % 1 % (0-3); HEMATOCRIT 28.3 % (36.0-47.0); HEMOGLOBIN 9.5 g/dL (12.0-15.5); LYMPH # 2.6 x10^3/uL (1.0-4.8); LYMPH % 49 % (24-48); MEAN CORPUSCULAR HEMOGLOBIN 32 pg (25-35); MEAN CORPUSCULAR HGB CONC 34 g/dL (31-37); MEAN CORPUSCULAR VOLUME 96 fL (79-100); MONO % 10 % (0-9); NEUT % 39 % (31-73); PLATELET COUNT 222 x10^3/uL (140-400); RED BLOOD COUNT 2.95 x10^6/uL (3.50-5.40); RED CELL DISTRIBUTION WIDTH 15.9 % (11.5-14.5); WHITE BLOOD COUNT 5.2 x10^3/uL (4.0-11.0)
[2017-02-17 07:00] VITALS: BP 127/77
[2017-02-17] MEDS: THIAMINE 100 MG TABLET. PO SCH (07:23)
[2017-02-17] MEDS: SENNOSIDES/DOCUSATE 8.6/50MG TABLET. PO SCH (07:24)
[2017-02-17] MEDS: FAMOTIDINE 20 MG/2 ML VIAL IVP SCH (07:24)
[2017-02-17] MEDS: FOLIC ACID 1 MG TABLET. PO SCH (07:24)
[2017-02-17] MEDS: VITAMIN B COMPLEX TABLET. PO SCH (07:24)
--- NOTE | 2017-02-17 09:40 | PDOC ---
TIFFANY MUNOZ VICE PRESIDENT BUSINESS DEVELOPMENT 02/17/17 0940: SURGICAL PROGRESS NOTE Subjective tolerating clears few loose stools no emesis pain improved Vital Signs Vital Signs Date Time Temp Pulse Resp B/P (MAP) Pulse Ox O2 Delivery O2 Flow Rate FiO2 02/17/17 07:00 97.5 62 18 127/77 (94) 100 Room Air 97.5 I&O Intake and Output 02/17/17 06:59 # Voids 3 # Bowel Movements 1 General: Alert, Oriented X3, Cooperative, No acute distress Abdomen: Soft, Other (tenderness lower abdomen, mild ) Labs Laboratory Tests Test 02/15/17 19:02 02/15/17 19:29 02/16/17 03:20 02/16/17 05:30 Urine Collection Type Unknown Urine Color [place] Urine Clarity Turbid Urine pH 5.5 Urine Specific [place] 1.020 Urine Protein Negative mg/dL (NEG-TRACE) Urine Glucose (UA) Negative mg/dL (NEG) Urine Ketones (Stick) Trace mg/dL (NEG) Urine Blood Negative (NEG) Urine Nitrite Negative (NEG) Urine Bilirubin Moderate (NEG) Urine Urobilinogen Dipstick 2.0 mg/dL (0.2 mg/dL) Urine Leukocyte Esterase Negative (NEG) Urine RBC Occ /HPF (0-2) Urine WBC 1-4 /HPF (0-4) Urine Squamous Epithelial Cells Many /LPF Urine Bacteria Few /HPF (0-FEW) Urine Hyaline Casts Many /HPF Urine Mucus Marked /LPF Urine Opiates Screen Neg (NEG) Urine Methadone Screen Neg (NEG) Urine Barbiturates Neg (NEG) Urine Phencyclidine Screen Neg (NEG) Urine Amphetamine/Methamphetamine Neg (NEG) Urine Benzodiazepines Screen Neg (NEG) Urine Cocaine Screen Neg (NEG) Urine Cannabinoids Screen Pos (NEG) Urine Ethyl Alcohol Pos (NEG) White Blood Count 7.6 x10^3/uL (4.0-11.0) 7.1 x10^3/uL (4.0-11.0) Red Blood Count 4.00 x10^6/uL (3.50-5.40) 2.95 x10^6/uL (3.50-5.40) Hemoglobin 13.0 g/dL (12.0-15.5) 9.4 g/dL (12.0-15.5) Hematocrit 37.7 % (36.0-47.0) 27.9 % (36.0-47.0) Mean Corpuscular Volume 94 fL (79-100) 95 fL (79-100) Mean Corpuscular Hemoglobin 32 pg (25-35) 32 pg (25-35) Mean Corpuscular Hemoglobin Concent 34 g/dL (31-37) 34 g/dL (31-37) Red Cell Distribution Width 15.3 % (11.5-14.5) 15.8 % (11.5-14.5) Platelet Count 265 x10^3/uL (140-400) 202 x10^3/uL (140-400) Neutrophils (%) (Auto) 70 % (31-73) 50 % (31-73) Lymphocytes (%) (Auto) 17 % (24-48) 37 % (24-48) Monocytes (%) (Auto) 12 % (0-9) 12 % (0-9) Eosinophils (%) (Auto) 0 % (0-3) 0 % (0-3) Basophils (%) (Auto) 0 % (0-3) 1 % (0-3) Neutrophils # (Auto) 5.3 x10^3uL (1.8-7.7) 3.5 x10^3uL (1.8-7.7) Lymphocytes # (Auto) 1.3 x10^3/uL (1.0-4.8) 2.7 x10^3/uL (1.0-4.8) Monocytes # (Auto) 0.9 x10^3/uL (0.0-1.1) 0.8 x10^3/uL (0.0-1.1) Eosinophils # (Auto) 0.0 x10^3/uL (0.0-0.7) 0.0 x10^3/uL (0.0-0.7) Basophils # (Auto) 0.0 x10^3/uL (0.0-0.2) 0.1 x10^3/uL (0.0-0.2) Sodium Level 131 mmol/L (136-145) 131 mmol/L (136-145) Potassium Level 2.6 mmol/L (3.5-5.1) 4.3 mmol/L (3.5-5.1) Chloride Level 92 mmol/L (98-107) 98 mmol/L (98-107) Carbon Dioxide Level 26 mmol/L (21-32) 23 mmol/L (21-32) Anion Gap 13 (6-14) 10 (6-14) Blood Urea Nitrogen 5 mg/dL (7-20) 8 mg/dL (7-20) Creatinine 0.9 mg/dL (0.6-1.0) 0.7 mg/dL (0.6-1.0) Estimated GFR (Cockcroft-Gault) 79.0 105.5 BUN/Creatinine Ratio 6 (6-20) Glucose Level 123 mg/dL (70-99) 63 mg/dL (70-99) Calcium Level 9.2 mg/dL (8.5-10.1) 7.9 mg/dL (8.5-10.1) Magnesium Level 1.7 mg/dL (1.8-2.4) 1.6 mg/dL (1.8-2.4) Total Bilirubin 1.9 mg/dL (0.2-1.0) 1.5 mg/dL (0.2-1.0) Aspartate Amino Transf (AST/SGOT) 66 U/L (15-37) 61 U/L (15-37) Alanine Aminotransferase (ALT/SGPT) 55 U/L (14-59) 45 U/L (14-59) Alkaline Phosphatase 219 U/L (46-116) 154 U/L (46-116) Total Protein 7.5 g/dL (6.4-8.2) 6.2 g/dL (6.4-8.2) Albumin 3.1 g/dL (3.4-5.0) 2.5 g/dL (3.4-5.0) Albumin/Globulin Ratio 0.7 (1.0-1.7) Lipase 53 U/L (73-393) Ethyl Alcohol Level < 10 mg/dL (0-10) Prothrombin Time 13.8 SEC (11.7-14.0) Prothromb Time International Ratio 1.1 (0.8-1.1) Phosphorus Level 2.3 mg/dL (2.6-4.7) Direct Bilirubin 0.7 mg/dL (0.0-0.2) Reticulocyte Count (auto) 0.9 % (0.5-2.5) Iron Level 179 ug/dL (50-170) Total Iron Binding Capacity 198 ug/dL (250-450) Iron Saturation 90 % (15-34) Vitamin B12 Level 892 pg/mL (247-911) Serum Folate > 24.00 ng/ml (3.2-20.0) Test 02/17/17 04:30 White Blood Count 5.2 x10^3/uL (4.0-11.0) Red Blood Count 2.95 x10^6/uL (3.50-5.40) Hemoglobin 9.5 g/dL (12.0-15.5) Hematocrit 28.3 % (36.0-47.0) Mean Corpuscular Volume 96 fL (79-100) Mean Corpuscular Hemoglobin 32 pg (25-35) Mean Corpuscular Hemoglobin Concent 34 g/dL (31-37) Red Cell Distribution Width 15.9 % (11.5-14.5) Platelet Count 222 x10^3/uL (140-400) Neutrophils (%) (Auto) 39 % (31-73) Lymphocytes (%) (Auto) 49 % (24-48) Monocytes (%) (Auto) 10 % (0-9) Eosinophils (%) (Auto) 1 % (0-3) Basophils (%) (Auto) 1 % (0-3) Neutrophils # (Auto) 2.0 x10^3uL (1.8-7.7) Lymphocytes # (Auto) 2.6 x10^3/uL (1.0-4.8) Monocytes # (Auto) 0.5 x10^3/uL (0.0-1.1) Eosinophils # (Auto) 0.0 x10^3/uL (0.0-0.7) Basophils # (Auto) 0.1 x10^3/uL (0.0-0.2) Magnesium Level 2.2 mg/dL (1.8-2.4) Laboratory Tests Test 02/17/17 04:30 White Blood Count 5.2 x10^3/uL (4.0-11.0) Red Blood Count 2.95 x10^6/uL (3.50-5.40) Hemoglobin 9.5 g/dL (12.0-15.5) Hematocrit 28.3 % (36.0-47.0) Mean Corpuscular Volume 96 fL (79-100) Mean Corpuscular Hemoglobin 32 pg (25-35) Mean Corpuscular Hemoglobin Concent 34 g/dL (31-37) Red Cell Distribution Width 15.9 % (11.5-14.5) Platelet Count 222 x10^3/uL (140-400) Neutrophils (%) (Auto) 39 % (31-73) Lymphocytes (%) (Auto) 49 % (24-48) Monocytes (%) (Auto) 10 % (0-9) Eosinophils (%) (Auto) 1 % (0-3) Basophils (%) (Auto) 1 % (0-3) Neutrophils # (Auto) 2.0 x10^3uL (1.8-7.7) Lymphocytes # (Auto) 2.6 x10^3/uL (1.0-4.8) Monocytes # (Auto) 0.5 x10^3/uL (0.0-1.1) Eosinophils # (Auto) 0.0 x10^3/uL (0.0-0.7) Basophils # (Auto) 0.1 x10^3/uL (0.0-0.2) Magnesium Level 2.2 mg/dL (1.8-2.4) Problem List Problems Medical Problems: (1) Abdominal pain Status: Acute (2) Hypokalemia Status: Acute Assessment/Plan ct showing nonspecific colitis, enteritis no surgical plans, GI following Problems: HAZEL TREADWELL MD 02/17/17 1057: SURGICAL PROGRESS NOTE Assessment/Plan as above no acute surgical recs Problems: TIFFANY MUNOZ VICE PRESIDENT BUSINESS DEVELOPMENT February 17, 2017 09:40 HAZEL TREADWELL MD February 17, 2017 10:57
--- NOTE | 2017-02-17 10:18 | PDOC ---
PROGRESS NOTES Chief Complaint Chief Complaint 1. Colitis, enteritis 2. CHolelithiasis but no cholecystitis, fatty liver 3. Heavy etoh drinker 4. Recreational drug use 5. SMoker 6. ELevated LFts 7. Known CAD with 1 cardiac stent 8, hx brain "clot" 9,. CRITICAL HYPOKALEMIA from GI loss (emesis, diarrhea), resolved 10. Hyponatremia History of Present Illness History of Present Illness Still diarrhea - Called lab- sent out - maybe gennaro available results NO fevers NO white ct K better NA 131 - slightly low LOoks better CT ordered by GI/GS- no mass, eneteritis.colitis, cholelith and fattyv liver - all evident on US Still epigastric pain mostly, tender to palpation Family concerned about 50 lb weight loss for past 3 mos, other choke setter says diarrhea x 3 mos, unsure how reliable this is PLAn: Gi soft if no plans of inhouse C scope Await stool specimen Add c diff - discussed with lab and RN Doubt c diff so trial of immodium ok Dc PPI IV and lovenox - ambulatory COnsider PO antibiotics for diarrhea? no white ct or fever though Will discuss with GI Dw family and RN Vitals Vitals Vital Signs Date Time Temp Pulse Resp B/P (MAP) Pulse Ox O2 Delivery O2 Flow Rate FiO2 02/17/17 08:00 Room Air 02/17/17 07:00 97.5 62 18 127/77 (94) 100 97.5 Physical Exam General: Alert, Oriented X3, Cooperative, No acute distress Heart: Regular rate, Normal S1, Normal S2, No murmurs Lungs: Clear Abdomen: Soft, Other (tenderness lower abdomen, mild ) Extremities: No clubbing, No cyanosis Skin: Other (lesions, scabs to BLEs) Labs LABS Laboratory Tests Test 02/17/17 04:30 White Blood Count 5.2 x10^3/uL (4.0-11.0) Red Blood Count 2.95 x10^6/uL (3.50-5.40) Hemoglobin 9.5 g/dL (12.0-15.5) Hematocrit 28.3 % (36.0-47.0) Mean Corpuscular Volume 96 fL (79-100) Mean Corpuscular Hemoglobin 32 pg (25-35) Mean Corpuscular Hemoglobin Concent 34 g/dL (31-37) Red Cell Distribution Width 15.9 % (11.5-14.5) Platelet Count 222 x10^3/uL (140-400) Neutrophils (%) (Auto) 39 % (31-73) Lymphocytes (%) (Auto) 49 % (24-48) Monocytes (%) (Auto) 10 % (0-9) Eosinophils (%) (Auto) 1 % (0-3) Basophils (%) (Auto) 1 % (0-3) Neutrophils # (Auto) 2.0 x10^3uL (1.8-7.7) Lymphocytes # (Auto) 2.6 x10^3/uL (1.0-4.8) Monocytes # (Auto) 0.5 x10^3/uL (0.0-1.1) Eosinophils # (Auto) 0.0 x10^3/uL (0.0-0.7) Basophils # (Auto) 0.1 x10^3/uL (0.0-0.2) Magnesium Level 2.2 mg/dL (1.8-2.4) Review of Systems Review of Systems diarrhea, no fevers, no cp, soa Assessment and Plan Assessmemt and Plan Problems Medical Problems: (1) Abdominal pain Status: Acute (2) Hypokalemia Status: Acute Problems: Comment Review of Relevant I have reviewed the following items juan m (where applicable) has been applied. Labs Laboratory Tests Test 02/15/17 19:02 02/15/17 19:29 02/16/17 03:20 02/16/17 05:30 Urine Collection Type Unknown Urine Color [place] Urine Clarity Turbid Urine pH 5.5 Urine Specific [place] 1.020 Urine Protein Negative mg/dL (NEG-TRACE) Urine Glucose (UA) Negative mg/dL (NEG) Urine Ketones (Stick) Trace mg/dL (NEG) Urine Blood Negative (NEG) Urine Nitrite Negative (NEG) Urine Bilirubin Moderate (NEG) Urine Urobilinogen Dipstick 2.0 mg/dL (0.2 mg/dL) Urine Leukocyte Esterase Negative (NEG) Urine RBC Occ /HPF (0-2) Urine WBC 1-4 /HPF (0-4) Urine Squamous Epithelial Cells Many /LPF Urine Bacteria Few /HPF (0-FEW) Urine Hyaline Casts Many /HPF Urine Mucus Marked /LPF Urine Opiates Screen Neg (NEG) Urine Methadone Screen Neg (NEG) Urine Barbiturates Neg (NEG) Urine Phencyclidine Screen Neg (NEG) Urine Amphetamine/Methamphetamine Neg (NEG) Urine Benzodiazepines Screen Neg (NEG) Urine Cocaine Screen Neg (NEG) Urine Cannabinoids Screen Pos (NEG) Urine Ethyl Alcohol Pos (NEG) White Blood Count 7.6 x10^3/uL (4.0-11.0) 7.1 x10^3/uL (4.0-11.0) Red Blood Count 4.00 x10^6/uL (3.50-5.40) 2.95 x10^6/uL (3.50-5.40) Hemoglobin 13.0 g/dL (12.0-15.5) 9.4 g/dL (12.0-15.5) Hematocrit 37.7 % (36.0-47.0) 27.9 % (36.0-47.0) Mean Corpuscular Volume 94 fL (79-100) 95 fL (79-100) Mean Corpuscular Hemoglobin 32 pg (25-35) 32 pg (25-35) Mean Corpuscular Hemoglobin Concent 34 g/dL (31-37) 34 g/dL (31-37) Red Cell Distribution Width 15.3 % (11.5-14.5) 15.8 % (11.5-14.5) Platelet Count 265 x10^3/uL (140-400) 202 x10^3/uL (140-400) Neutrophils (%) (Auto) 70 % (31-73) 50 % (31-73) Lymphocytes (%) (Auto) 17 % (24-48) 37 % (24-48) Monocytes (%) (Auto) 12 % (0-9) 12 % (0-9) Eosinophils (%) (Auto) 0 % (0-3) 0 % (0-3) Basophils (%) (Auto) 0 % (0-3) 1 % (0-3) Neutrophils # (Auto) 5.3 x10^3uL (1.8-7.7) 3.5 x10^3uL (1.8-7.7) Lymphocytes # (Auto) 1.3 x10^3/uL (1.0-4.8) 2.7 x10^3/uL (1.0-4.8) Monocytes # (Auto) 0.9 x10^3/uL (0.0-1.1) 0.8 x10^3/uL (0.0-1.1) Eosinophils # (Auto) 0.0 x10^3/uL (0.0-0.7) 0.0 x10^3/uL (0.0-0.7) Basophils # (Auto) 0.0 x10^3/uL (0.0-0.2) 0.1 x10^3/uL (0.0-0.2) Sodium Level 131 mmol/L (136-145) 131 mmol/L (136-145) Potassium Level 2.6 mmol/L (3.5-5.1) 4.3 mmol/L (3.5-5.1) Chloride Level 92 mmol/L (98-107) 98 mmol/L (98-107) Carbon Dioxide Level 26 mmol/L (21-32) 23 mmol/L (21-32) Anion Gap 13 (6-14) 10 (6-14) Blood Urea Nitrogen 5 mg/dL (7-20) 8 mg/dL (7-20) Creatinine 0.9 mg/dL (0.6-1.0) 0.7 mg/dL (0.6-1.0) Estimated GFR (Cockcroft-Gault) 79.0 105.5 BUN/Creatinine Ratio 6 (6-20) Glucose Level 123 mg/dL (70-99) 63 mg/dL (70-99) Calcium Level 9.2 mg/dL (8.5-10.1) 7.9 mg/dL (8.5-10.1) Magnesium Level 1.7 mg/dL (1.8-2.4) 1.6 mg/dL (1.8-2.4) Total Bilirubin 1.9 mg/dL (0.2-1.0) 1.5 mg/dL (0.2-1.0) Aspartate Amino Transf (AST/SGOT) 66 U/L (15-37) 61 U/L (15-37) Alanine Aminotransferase (ALT/SGPT) 55 U/L (14-59) 45 U/L (14-59) Alkaline Phosphatase 219 U/L (46-116) 154 U/L (46-116) Total Protein 7.5 g/dL (6.4-8.2) 6.2 g/dL (6.4-8.2) Albumin 3.1 g/dL (3.4-5.0) 2.5 g/dL (3.4-5.0) Albumin/Globulin Ratio 0.7 (1.0-1.7) Lipase 53 U/L (73-393) Ethyl Alcohol Level < 10 mg/dL (0-10) Prothrombin Time 13.8 SEC (11.7-14.0) Prothromb Time International Ratio 1.1 (0.8-1.1) Phosphorus Level 2.3 mg/dL (2.6-4.7) Direct Bilirubin 0.7 mg/dL (0.0-0.2) Reticulocyte Count (auto) 0.9 % (0.5-2.5) Iron Level 179 ug/dL (50-170) Total Iron Binding Capacity 198 ug/dL (250-450) Iron Saturation 90 % (15-34) Vitamin B12 Level 892 pg/mL (247-911) Serum Folate > 24.00 ng/ml (3.2-20.0) Test 02/17/17 04:30 White Blood Count 5.2 x10^3/uL (4.0-11.0) Red Blood Count 2.95 x10^6/uL (3.50-5.40) Hemoglobin 9.5 g/dL (12.0-15.5) Hematocrit 28.3 % (36.0-47.0) Mean Corpuscular Volume 96 fL (79-100) Mean Corpuscular Hemoglobin 32 pg (25-35) Mean Corpuscular Hemoglobin Concent 34 g/dL (31-37) Red Cell Distribution Width 15.9 % (11.5-14.5) Platelet Count 222 x10^3/uL (140-400) Neutrophils (%) (Auto) 39 % (31-73) Lymphocytes (%) (Auto) 49 % (24-48) Monocytes (%) (Auto) 10 % (0-9) Eosinophils (%) (Auto) 1 % (0-3) Basophils (%) (Auto) 1 % (0-3) Neutrophils # (Auto) 2.0 x10^3uL (1.8-7.7) Lymphocytes # (Auto) 2.6 x10^3/uL (1.0-4.8) Monocytes # (Auto) 0.5 x10^3/uL (0.0-1.1) Eosinophils # (Auto) 0.0 x10^3/uL (0.0-0.7) Basophils # (Auto) 0.1 x10^3/uL (0.0-0.2) Magnesium Level 2.2 mg/dL (1.8-2.4) Laboratory Tests Test 02/17/17 04:30 White Blood Count 5.2 x10^3/uL (4.0-11.0) Red Blood Count 2.95 x10^6/uL (3.50-5.40) Hemoglobin 9.5 g/dL (12.0-15.5) Hematocrit 28.3 % (36.0-47.0) Mean Corpuscular Volume 96 fL (79-100) Mean Corpuscular Hemoglobin 32 pg (25-35) Mean Corpuscular Hemoglobin Concent 34 g/dL (31-37) Red Cell Distribution Width 15.9 % (11.5-14.5) Platelet Count 222 x10^3/uL (140-400) Neutrophils (%) (Auto) 39 % (31-73) Lymphocytes (%) (Auto) 49 % (24-48) Monocytes (%) (Auto) 10 % (0-9) Eosinophils (%) (Auto) 1 % (0-3) Basophils (%) (Auto) 1 % (0-3) Neutrophils # (Auto) 2.0 x10^3uL (1.8-7.7) Lymphocytes # (Auto) 2.6 x10^3/uL (1.0-4.8) Monocytes # (Auto) 0.5 x10^3/uL (0.0-1.1) Eosinophils # (Auto) 0.0 x10^3/uL (0.0-0.7) Basophils # (Auto) 0.1 x10^3/uL (0.0-0.2) Magnesium Level 2.2 mg/dL (1.8-2.4) Medications Current Medications Fentanyl Citrate (Fentanyl 2ml Vial) 50 mcg 1X ONCE IV Last administered on t 20:02; Start 02/15/17 at 19:30; Stop 02/15/17 at 19:31; Status DC Ondansetron HCl (Zofran) 4 mg 1X ONCE IV Last administered on 02/15/17 20:00 ; Start 02/15/17 at 19:30; Stop 02/15/17 at 19:31; Status DC Sodium Chloride 1,000 ml @ 1,000 mls/hr 1X ONCE IV Last administered on 19:59; Start 02/15/17 at 19:45; Stop 02/15/17 at 20:44; Status DC Famotidine (Pepcid) 20 mg 1X ONCE IVP Last administered on 02/15/17 20:16; Start 02/15/17 at 20:00; Stop 02/15/17 at 20:08; Status DC Potassium Chloride (Klor-Con) 40 meq 1X ONCE PO Last administered on 20:16; Start 02/15/17 at 20:00; Stop 02/15/17 at 20:08; Status DC Potassium Chloride 50 ml @ 50 mls/hr 1X ONCE IV Last administered on 20:16; Start 02/15/17 at 20:00; Stop 02/15/17 at 20:59; Status DC Potassium Chloride/Sodium Chloride 1,000 ml @ 100 mls/hr Q10H IV Last administered on 02/16/17 07:48; Start 02/15/17 at 22:00; Stop 02/16/17 at 08:01 ; Status DC Ondansetron HCl (Zofran) 4 mg PRN Q6HRS PRN IV NAUSEA/VOMITING; Start 02/15/17 at 21:30 Prochlorperazine Edisylate (Compazine) 10 mg PRN Q6HRS PRN IV NAUSEA/VOMITING; Start 02/15/17 at 21:30 Prochlorperazine (Compazine) 25 mg PRN Q12HR PRN MT NAUSEA/VOMITING; Start at 21:30 Al Hydroxide/Mg Hydroxide (Mylanta Plus Xs) 30 ml PRN Q3HRS PRN PO HEARTBURN / GAS; Start 02/15/17 at 21:30 Calcium Carbonate/ Glycine (Tums) 500 mg PRN Q3HRS PRN PO UPSET STOMACH; Start 02/15/17 at 21:30 Zolpidem Tartrate (Ambien) 5 mg PRN QHS PRN PO INSOMNIA, MAY REPEAT IN 1HR; Start 02/15/17 at 21:30 Oxycodone HCl (Roxicodone) 5 mg PRN Q3HRS PRN PO BREAKTHROUGH PAIN Last administered on 02/16/17t 16:44; Start 02/15/17 at 21:30 Morphine Sulfate 1 mg PRN Q1HR PRN IV MODERATE PAIN; Start 02/15/17 at 21:30 Ketorolac Tromethamine (Toradol) 15 mg PRN Q6HRS PRN IV MODERATE PAIN; Start at 21:30; Stop 02/20/17 at 21:29 Acetaminophen (Tylenol) 650 mg PRN Q6HRS PRN PO Headaches, Temp > 101.5F; Start 02/15/17 at 21:30 Senna/Docusate Sodium (Senna Plus) 1 tab BID PO ; Start 02/16/17 at 09:00 Magnesium Hydroxide (Milk Of Magnesia) 2,400 mg PRN Q12HR PRN PO CONSTIPATION; Start 02/15/17 at 21:30; Stop 02/17/17 at 10:13; Status DC Bisacodyl (Dulcolax Supp) 10 mg PRN DAILY PRN MT CONSTIPATION; Start 02/15/17 at 21:30; Stop 02/17/17 at 10:13; Status DC Enoxaparin Sodium (Lovenox 40mg Syringe) 40 mg Q24H SQ Last administered on t 22:26; Start 02/15/17 at 22:00 Nicotine (Nicoderm Cq 21mg) 1 patch PRN DAILY PRN TD SMOKING CESSATION; Start 02/15/17 at 21:30 Labetalol HCl (Normodyne) 10 mg PRN Q2HR PRN IVP HYPERTENSION, SEE COMMENTS; Start 02/15/17 at 21:30 Ondansetron HCl (Zofran) 4 mg PRN Q8HRS PRN IV NAUSEA/VOMITING; Start 02/15/17 at 21:30; Stop 02/16/17 at 21:29; Status UNV Multivitamins 10 ml/Folic Acid 1 mg/Thiamine HCl 100 mg/Dextrose/ Sodium Chloride 1,011.2 ml @ 1,000 mls/ hr 1X ONCE IV Last administered on 22:04; Start 02/15/17 at 22:00; Stop 02/15/17 at 23:00; Status DC Famotidine (Pepcid) 20 mg BID IVP Last administered on 02/17/17 07:24; Start 02/16/17 at 09:00 Potassium Chloride (Klor-Con) 40 meq 1X ONCE PO Last administered on 22:04; Start 02/15/17 at 22:00; Stop 02/15/17 at 22:01; Status DC Potassium Chloride (Klor-Con) 40 meq DAILY PO ; Start 02/16/17 at 09:00; Stop at 09:00; Status DC Thiamine Mononitrate (Vitamin B-1) 100 mg DAILY PO Last administered on 07:23; Start 02/16/17 at 09:00 Folic Acid (Folic Acid) 1 mg DAILY PO Last administered on 02/17/17 07:24; Start 02/16/17 at 09:00 Vitamin B Complex (Matt B) 1 tab DAILY PO Last administered on 02/17/17 07:24 ; Start 02/16/17 at 09:00 Chlordiazepoxide (Librium) 25 mg PRN Q6HRS PRN PO ANXIETY / AGITATION; Start at 21:45 Nicotine (Nicoderm Cq 21mg) 1 patch PRN DAILY PRN TD SMOKING CESSATION; Start 02/15/17 at 22:00; Status UNV Nicotine Polacrilex (Nicorette Gum) 1 each PRN Q1HR PRN BC SMOKING CESSATION; Start 02/15/17 at 22:00 Magnesium Sulfate/ Dextrose 50 ml @ 25 mls/hr 1X ONCE IV Last administered on 02/16/17 16:44; Start 02/16/17 at 08:00; Stop 02/16/17 at 09:59; Status DC Iohexol (Omnipaque 300 Mg/ml) 75 ml 1X ONCE IV Last administered on 02/16/17 10:30; Start 02/16/17 at 10:30; Stop 02/16/17 at 10:31; Status DC Info (Do NOT chart on this entry -- for MONITORING) 1 each PRN DAILY PRN MC SEE COMMENTS; Start 02/16/17 at 10:30; Stop 02/16/17 at 10:35; Status DC Iohexol (Omnipaque 240 Mg/ml) 30 ml 1X ONCE PO Last administered on 02/16/17t 11:00; Start 02/16/17 at 11:00; Stop 02/16/17 at 11:01; Status DC Info (Do NOT chart on this entry -- for MONITORING) 1 each PRN DAILY PRN MC SEE COMMENTS; Start 02/16/17 at 10:45; Stop 02/18/17 at 10:44 Loperamide HCl (Imodium) 2 mg PRN Q15MIN PRN PO DIARRHEA; Start 02/17/17 at 10: 15; Status UNV Active Scripts Active Amoxicillin 875 Mg Tablet 1 Tab PO BID Naproxen 500 Mg Tablet.dr 1 Tab PO BID Cyclobenzaprine Hcl 10 Mg Tablet 1 Tab PO TID Medrol (Methylprednisolone) 4 Mg Tab.ds.pk 1 Pkg PO UD Cyclobenzaprine Hcl 10 Mg Tablet 1 Tab PO TID Vitals/I & O Vital Sign - Last 24 Hours 02/16/17 02/16/17 02/16/17 02/16/17 11:00 15:00 16:44 17:55 Temp 97.8 97.7 97.8 97.7 Pulse 76 50 Resp 18 18 B/P (MAP) 118/85 (96) 125/85 (98) Pulse Ox 97 94 100 100 O2 Delivery Room Air Room Air Room Air Room Air 02/16/17 02/16/17 02/16/17 02/17/17 19:00 20:00 23:28 03:40 Temp 97.3 97.7 97.3 97.7 Pulse 58 53 Resp 18 18 B/P (MAP) 98/69 (79) 98/71 (80) Pulse Ox 98 100 O2 Delivery Room Air Room Air Room Air Room Air 02/17/17 02/17/17 07:00 08:00 Temp 97.5 97.5 Pulse 62 Resp 18 B/P (MAP) 127/77 (94) Pulse Ox 100 O2 Delivery Room Air Room Air Nutrition Consultation Dietary Evaluation: Recommendations by RD: Dietary education by RD, Increase Calorie Intake, Protein supplementation Comments: diet education provided and discussed on General Healthy Nutrition adv diet to regular offer Ensure prn REC mvi q day at d/c Expected Outcomes/Goals: to meet > 75% est nutr needs Interpretation of weight loss: >7.5% in 3 months Malnutrition Findings: Weight Status: Underweight GILLIAN BAKER MD February 17, 2017 10:18
[2017-02-17] MEDS: oxyCODONE IR 5 MG TABLET PO PRN (10:34)
[2017-02-17] MEDS: metroNIDAZOLE 500 MG TABLET PO SCH ×3 (10:34→21:23)
[2017-02-17 11:00] VITALS: BP 117/74
--- NOTE | 2017-02-17 11:29 | PDOC ---
Subjective: Subjective: Was in shower earlier when I stopped by, was in bathroom again when I came back but came out to talk w/ family. Still has abd pain, improved w/ meds. Family concerned about this. Diarrhea three times yesterday, twice today. No n/v. Ate a few bites of regular lunch. Family concerned w/ decreased appetite and weight loss. Objective: Objective: Has been started on Levaquin and Flagyl. Vital Signs: Vital Signs Date Time Temp Pulse Resp B/P (MAP) Pulse Ox O2 Delivery O2 Flow Rate FiO2 02/17/17 11:00 97.6 61 18 117/74 (88) 99 Room Air 97.6 Labs: Laboratory Tests Test 02/17/17 04:30 02/17/17 10:45 White Blood Count 5.2 x10^3/uL Red Blood Count 2.95 x10^6/uL Hemoglobin 9.5 g/dL Hematocrit 28.3 % Mean Corpuscular Volume 96 fL Mean Corpuscular Hemoglobin 32 pg Mean Corpuscular Hemoglobin Concent 34 g/dL Red Cell Distribution Width 15.9 % Platelet Count 222 x10^3/uL Neutrophils (%) (Auto) 39 % Lymphocytes (%) (Auto) 49 % Monocytes (%) (Auto) 10 % Eosinophils (%) (Auto) 1 % Basophils (%) (Auto) 1 % Neutrophils # (Auto) 2.0 x10^3uL Lymphocytes # (Auto) 2.6 x10^3/uL Monocytes # (Auto) 0.5 x10^3/uL Eosinophils # (Auto) 0.0 x10^3/uL Basophils # (Auto) 0.1 x10^3/uL Magnesium Level 2.2 mg/dL Erythrocyte Sedimentation Rate 9 Imaging: CT A/P w/ oral and IV contrast 02/16/17 IMPRESSION: 1. Mild mural thickening involving the right colon as well as a loop of jejunum. The findings suggest nonspecific colitis/enteritis. 2. Small amount of free fluid in the pelvis. 3. Cholelithiasis. 4. Hepatic steatosis. PE: GEN: NAD LUNGS: clear HEART: RRR ABD: periumbilical pain NEURO/PSYCH: A & O x 3 A/P: Diarrhea, abd pain, decreased appetite, weight loss -CT as above -C Diff, stool cx pending -no previous EGD or colonoscopy Vomiting - resolved -h/o some heartburn, on Pepcid Cholelithiasis, gallbladder sludge Abnormal LFTs, hepatic steatosis Anemia, iron overload -no baseline for comparison, denies obvious bleeding -HFE ordered yesterday Substance abuse -alcohol, tob, marijuana -- Spent 10 min in room. Hematology consult. No surgical plans. Will plans for outpatient EGD and colonoscopy, discussed this w/ pt and family. ?need for atbx - will d/w Dr. Cano. YOLANDA GUZMAN February 17, 2017 11:29
[2017-02-17 14:59] VITALS: BP 128/80
--- NOTE | 2017-02-17 16:39 | PDOC ---
Provider Note Provider Note Hem-Onc consult: 1. Elevated iron saturation - I will check ferritin. Etiology likely liver disease. 2. Anemia See dictation [id number] YOSHI HUFF MD February 17, 2017 16:39
[2017-02-17 19:00] VITALS: BP 124/73
[2017-02-17 23:00] VITALS: BP 126/62
--- NOTE | 2017-02-18 01:49 | CONS ---
DATE OF CONSULTATION: 02/17/2017 HEMATOLOGY/ONCOLOGY CONSULTATION REPORT CONSULTATION REQUESTED BY: CLOVER Bocanegra REASON FOR CONSULTATION: Anemia and iron overload. HISTORY OF PRESENT ILLNESS: The patient is a 56-year-old -[place] female who has a history of heavy alcohol use, smoking, recreational drug use and she presented to [facility] on 02/15/2017 with nausea, vomiting, diarrhea and she was noted to have hypokalemia. She received IV potassium and subsequently she was admitted to [facility]. She has also had symptoms of abdominal pain. No hematemesis, melena or hematochezia. No hemoptysis or hematuria. She has chronic back pain for which she takes hydrocodone and Tylenol, no NSAIDs. She denies dysphagia. No loss of weight or loss of appetite. No change in bowel habits. She underwent ultrasound of the abdomen on 02/15/2017 which revealed cholelithiasis and gallbladder sludge and mild hepatic steatosis. She underwent CT scan of the abdomen and pelvis on 02/16/2017 which revealed mild mural thickening involving the right colon, which are suggestive of nonspecific colitis/enteritis. Small amount of free fluid in the pelvis was noted in addition to hepatic steatosis. 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 FAMILY HISTORY: Negative for malignancy. SOCIAL HISTORY: She has history of heavy alcohol use. She smokes cigarettes for less than half a pack a day. REVIEW OF SYSTEMS: A 12-point review of systems was performed. Pertinent positives are mentioned in the history of present illness. Rest of the system review is negative. PHYSICAL EXAMINATION: GENERAL APPEARANCE: The patient is a 56-year-old -[place] female who is in no acute cardiorespiratory distress. VITAL SIGNS: Blood pressure 170/74, temperature 97.6. HEENT: Head atraumatic, normocephalic. Eyes: No icterus. NECK: Supple. CHEST: Bilaterally symmetrical. HEART: S1, S2 normal. ABDOMEN: Soft, nontender. CENTRAL NERVOUS SYSTEM: No focal deficits. LYMPHATICS: No lymphadenopathy. SKIN: No rashes. PSYCHOLOGIC: Mood and affect are appropriate. MUSCULOSKELETAL: No joint effusions. LABORATORY DATA: CBC on admission on 02/15/2017 revealed a WBC of 7.6, hemoglobin 13.0, platelet count 265. Followup CBC on 02/16/2017 revealed hemoglobin of 9.4. Reticulocyte count was 0.9. On 02/16/2017, creatinine was 0.7 with a calcium of 7.9. Iron 179. TIBC 198. iron saturation 90, total bilirubin 1.5, direct bilirubin 0.7, AST 61, alkaline phosphatase 154, total protein 6.2, albumin 2.5, B12 892, folic acid more than 24. Review of the prior records indicates that her CBC also revealed anemia in 2016. On 02/09/2016 her hemoglobin was 9.8. IMPRESSION AND PLAN: 1. Anemia, normochromic, normocytic. Review of the old records indicates that she had a hemoglobin of 9.8 on 02/09/2016. There is no evidence of iron deficiency or B12 deficiency. Her liver function tests had elevated. An ultrasound and CT scan of the abdomen reveals hepatic steatosis. I suspect that she has anemia of chronic disease due to alcoholism. There is no evidence of bleeding. Appreciate GI consultation. The patient will follow up with GI for possible esophagogastroduodenoscopy and colonoscopy. 2. Iron overload. The patient has elevated iron saturation level of 90 on 02/16/2017. I suspect that this is due to liver disease. I will also obtain a ferritin level. If the ferritin is very high, then it would be reasonable to proceed with hemochromatosis gene evaluation. 3. Tobaccoism. I have advised her to quit smoking. 4. Alcoholism. I have advised her to quit alcohol. 5. Elevated liver function tests, management per GI. YOSHI HUFF MD DR: JORDEN/jim JOB#: [id number] / [id number] ISRAEL Xavier MD
[2017-02-18] MEDS: metroNIDAZOLE 500 MG TABLET PO SCH ×3 (05:39→21:58)
[2017-02-18 07:00] VITALS: BP 130/74
[2017-02-18] MEDS: LOPERAMIDE 2 MG CAPSULE PO PRN ×3 (08:59→21:58)
[2017-02-18] MEDS: FOLIC ACID 1 MG TABLET. PO SCH (08:59)
[2017-02-18] MEDS: THIAMINE 100 MG TABLET. PO SCH (08:59)
[2017-02-18] MEDS: VITAMIN B COMPLEX TABLET. PO SCH (08:59)
--- NOTE | 2017-02-18 09:04 | PDOC ---
Subjective: Subjective: Having diarrhea - loose/watery brown stools twice overnight and once this morning. BLQ discomfort. Trying to eat as much as she can. Objective: Objective: Per RN - diarrhea, plans to give Imodium. Reviewed Dr. Moss's note. Vital Signs: Vital Signs Date Time Temp Pulse Resp B/P (MAP) Pulse Ox O2 Delivery O2 Flow Rate FiO2 02/18/17 07:00 97.7 65 18 130/74 (92) 95 Room Air 97.7 Labs: Laboratory Tests Test 02/17/17 10:45 Erythrocyte Sedimentation Rate 9 PE: GEN: NAD, sitting up in bed LUNGS: CTAB HEART: RRR ABD: BS+, vague BLQ tenderness NEURO/PSYCH: A & O 3 A/P: Diarrhea, abd pain, decreased appetite, weight loss -CT w/ nonspecific enteritis/colitis -C Diff neg, stool cx pending -no previous EGD or colonoscopy -on H2 cornelius Abnormal LFTs, hepatic steatosis, substance/alcohol abuse Anemia, iron overload ---> hematology following -ferritin elevated, HFE pending -- Agree w/ trial of Imodium. Has been counseled re: alcohol avoidance. EGD and colonoscopy as an outpatient. YOLANDA GUZMAN February 18, 2017 09:04
--- NOTE | 2017-02-18 10:47 | PDOC ---
PROGRESS NOTES Chief Complaint Chief Complaint 1. Colitis, enteritis 2. CHolelithiasis but no cholecystitis, fatty liver 3. Heavy etoh drinker 4. Recreational drug use 5. SMoker 6. ELevated LFts 7. Known CAD with 1 cardiac stent 8, hx brain "clot" 9,. CRITICAL HYPOKALEMIA from GI loss (emesis, diarrhea), resolved 10. 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 Dw family and RN Vitals Vitals Vital Signs Date Time Temp Pulse Resp B/P (MAP) Pulse Ox O2 Delivery O2 Flow Rate FiO2 02/18/17 07:00 97.7 65 18 130/74 (92) 95 Room Air 97.7 Physical Exam General: Alert, Oriented X3, Cooperative, No acute distress Heart: Regular rate, Normal S1, Normal S2, No murmurs Lungs: Clear Abdomen: Soft, Other (tenderness lower abdomen, mild ) Extremities: No clubbing, No cyanosis Skin: Other (lesions, scabs to BLEs) Labs LABS Laboratory Tests Test 02/17/17 10:45 Erythrocyte Sedimentation Rate 9 (0-25) Review of Systems Review of Systems diarrhea, abd pain, no cp, soa, fever Assessment and Plan Assessmemt and Plan Problems Medical Problems: (1) Abdominal pain Status: Acute (2) Hypokalemia Status: Acute Problems: Comment Review of Relevant I have reviewed the following items juan m (where applicable) has been applied. Labs Laboratory Tests Test 02/17/17 04:30 02/17/17 10:45 White Blood Count 5.2 x10^3/uL (4.0-11.0) Red Blood Count 2.95 x10^6/uL (3.50-5.40) Hemoglobin 9.5 g/dL (12.0-15.5) Hematocrit 28.3 % (36.0-47.0) Mean Corpuscular Volume 96 fL (79-100) Mean Corpuscular Hemoglobin 32 pg (25-35) Mean Corpuscular Hemoglobin Concent 34 g/dL (31-37) Red Cell Distribution Width 15.9 % (11.5-14.5) Platelet Count 222 x10^3/uL (140-400) Neutrophils (%) (Auto) 39 % (31-73) Lymphocytes (%) (Auto) 49 % (24-48) Monocytes (%) (Auto) 10 % (0-9) Eosinophils (%) (Auto) 1 % (0-3) Basophils (%) (Auto) 1 % (0-3) Neutrophils # (Auto) 2.0 x10^3uL (1.8-7.7) Lymphocytes # (Auto) 2.6 x10^3/uL (1.0-4.8) Monocytes # (Auto) 0.5 x10^3/uL (0.0-1.1) Eosinophils # (Auto) 0.0 x10^3/uL (0.0-0.7) Basophils # (Auto) 0.1 x10^3/uL (0.0-0.2) Magnesium Level 2.2 mg/dL (1.8-2.4) Ferritin 458 ng/mL (8-252) Erythrocyte Sedimentation Rate 9 (0-25) Laboratory Tests Test 02/17/17 10:45 Erythrocyte Sedimentation Rate 9 (0-25) Microbiology 02/16/17 Stool Culture, Resulted Pending 02/16/17 Stool Culture Result 1 (ILANA), Resulted Pending 02/16/17 Campylobacter Antigen Assay, Resulted Pending 02/16/17 Campylobactor Result 1, Resulted Pending 02/16/17 Shiga Toxin Test - Final, Resulted Medications Current Medications Fentanyl Citrate (Fentanyl 2ml Vial) 50 mcg 1X ONCE IV Last administered on 20:02; Start 02/15/17 at 19:30; Stop 02/15/17 at 19:31; Status DC Ondansetron HCl (Zofran) 4 mg 1X ONCE IV Last administered on 02/15/17 20:00 ; Start 02/15/17 at 19:30; Stop 02/15/17 at 19:31; Status DC Sodium Chloride 1,000 ml @ 1,000 mls/hr 1X ONCE IV Last administered on 19:59; Start 02/15/17 at 19:45; Stop 02/15/17 at 20:44; Status DC Famotidine (Pepcid) 20 mg 1X ONCE IVP Last administered on 02/15/17 20:16; Start 02/15/17 at 20:00; Stop 02/15/17 at 20:08; Status DC Potassium Chloride (Klor-Con) 40 meq 1X ONCE PO Last administered on 20:16; Start 02/15/17 at 20:00; Stop 02/15/17 at 20:08; Status DC Potassium Chloride 50 ml @ 50 mls/hr 1X ONCE IV Last administered on 20:16; Start 02/15/17 at 20:00; Stop 02/15/17 at 20:59; Status DC Potassium Chloride/Sodium Chloride 1,000 ml @ 100 mls/hr Q10H IV Last administered on 02/16/17 07:48; Start 02/15/17 at 22:00; Stop 02/16/17 at 08:01 ; Status DC Ondansetron HCl (Zofran) 4 mg PRN Q6HRS PRN IV NAUSEA/VOMITING; Start 02/15/17 at 21:30 Prochlorperazine Edisylate (Compazine) 10 mg PRN Q6HRS PRN IV NAUSEA/VOMITING; Start 02/15/17 at 21:30 Prochlorperazine (Compazine) 25 mg PRN Q12HR PRN ND NAUSEA/VOMITING; Start at 21:30 Al Hydroxide/Mg Hydroxide (Mylanta Plus Xs) 30 ml PRN Q3HRS PRN PO HEARTBURN / GAS; Start 02/15/17 at 21:30 Calcium Carbonate/ Glycine (Tums) 500 mg PRN Q3HRS PRN PO UPSET STOMACH; Start 02/15/17 at 21:30 Zolpidem Tartrate (Ambien) 5 mg PRN QHS PRN PO INSOMNIA, MAY REPEAT IN 1HR; Start 02/15/17 at 21:30 Oxycodone HCl (Roxicodone) 5 mg PRN Q3HRS PRN PO BREAKTHROUGH PAIN Last administered on 02/17/17 10:34; Start 02/15/17 at 21:30 Morphine Sulfate 1 mg PRN Q1HR PRN IV MODERATE PAIN; Start 02/15/17 at 21:30 Ketorolac Tromethamine (Toradol) 15 mg PRN Q6HRS PRN IV MODERATE PAIN; Start at 21:30; Stop 02/20/17 at 21:29 Acetaminophen (Tylenol) 650 mg PRN Q6HRS PRN PO Headaches, Temp > 101.5F; Start 02/15/17 at 21:30 Senna/Docusate Sodium (Senna Plus) 1 tab BID PO ; Start 02/16/17 at 09:00; Stop 02/17/17 at 10:15; Status DC Magnesium Hydroxide (Milk Of Magnesia) 2,400 mg PRN Q12HR PRN PO CONSTIPATION; Start 02/15/17 at 21:30; Stop 02/17/17 at 10:13; Status DC Bisacodyl (Dulcolax Supp) 10 mg PRN DAILY PRN ND CONSTIPATION; Start 02/15/17 at 21:30; Stop 02/17/17 at 10:13; Status DC Enoxaparin Sodium (Lovenox 40mg Syringe) 40 mg Q24H SQ Last administered on 22:26; Start 02/15/17 at 22:00; Stop 02/17/17 at 10:15; Status DC Nicotine (Nicoderm Cq 21mg) 1 patch PRN DAILY PRN TD SMOKING CESSATION; Start 02/15/17 at 21:30 Labetalol HCl (Normodyne) 10 mg PRN Q2HR PRN IVP HYPERTENSION, SEE COMMENTS; Start 02/15/17 at 21:30 Ondansetron HCl (Zofran) 4 mg PRN Q8HRS PRN IV NAUSEA/VOMITING; Start 02/15/17 at 21:30; Stop 02/16/17 at 21:29; Status UNV Multivitamins 10 ml/Folic Acid 1 mg/Thiamine HCl 100 mg/Dextrose/ Sodium Chloride 1,011.2 ml @ 1,000 mls/ hr 1X ONCE IV Last administered on 22:04; Start 02/15/17 at 22:00; Stop 02/15/17 at 23:00; Status DC Famotidine (Pepcid) 20 mg BID IVP Last administered on 02/17/17 07:24; Start 02/16/17 at 09:00; Stop 02/17/17 at 10:15; Status DC Potassium Chloride (Klor-Con) 40 meq 1X ONCE PO Last administered on 22:04; Start 02/15/17 at 22:00; Stop 02/15/17 at 22:01; Status DC Potassium Chloride (Klor-Con) 40 meq DAILY PO ; Start 02/16/17 at 09:00; Stop at 09:00; Status DC Thiamine Mononitrate (Vitamin B-1) 100 mg DAILY PO Last administered on 08:59; Start 02/16/17 at 09:00 Folic Acid (Folic Acid) 1 mg DAILY PO Last administered on 02/18/17 08:59; Start 02/16/17 at 09:00 Vitamin B Complex (Matt B) 1 tab DAILY PO Last administered on 02/18/17 08:59 ; Start 02/16/17 at 09:00 Chlordiazepoxide (Librium) 25 mg PRN Q6HRS PRN PO ANXIETY / AGITATION; Start at 21:45 Nicotine (Nicoderm Cq 21mg) 1 patch PRN DAILY PRN TD SMOKING CESSATION; Start 02/15/17 at 22:00; Status UNV Nicotine Polacrilex (Nicorette Gum) 1 each PRN Q1HR PRN BC SMOKING CESSATION; Start 02/15/17 at 22:00 Magnesium Sulfate/ Dextrose 50 ml @ 25 mls/hr 1X ONCE IV Last administered on 02/16/17 16:44; Start 02/16/17 at 08:00; Stop 02/16/17 at 09:59; Status DC Iohexol (Omnipaque 300 Mg/ml) 75 ml 1X ONCE IV Last administered on 02/16/17 10:30; Start 02/16/17 at 10:30; Stop 02/16/17 at 10:31; Status DC Info (Do NOT chart on this entry -- for MONITORING) 1 each PRN DAILY PRN MC SEE COMMENTS; Start 02/16/17 at 10:30; Stop 02/16/17 at 10:35; Status DC Iohexol (Omnipaque 240 Mg/ml) 30 ml 1X ONCE PO Last administered on 02/16/17 11:00; Start 02/16/17 at 11:00; Stop 02/16/17 at 11:01; Status DC Info (Do NOT chart on this entry -- for MONITORING) 1 each PRN DAILY PRN MC SEE COMMENTS; Start 02/16/17 at 10:45; Stop 02/18/17 at 10:44 Loperamide HCl (Imodium) 2 mg PRN Q15MIN PRN PO DIARRHEA Last administered on 08:59; Start 02/17/17 at 10:15 Metronidazole (Flagyl) 500 mg Q8HRS PO Last administered on 02/18/17 05:39; Start 02/17/17 at 10:30 Levofloxacin (Levaquin) 500 mg DAILY06 PO Last administered on 02/18/17 05:39 ; Start 02/17/17 at 10:30 Active Scripts Active Amoxicillin 875 Mg Tablet 1 Tab PO BID Naproxen 500 Mg Tablet.dr 1 Tab PO BID Cyclobenzaprine Hcl 10 Mg Tablet 1 Tab PO TID Medrol (Methylprednisolone) 4 Mg Tab.ds.pk 1 Pkg PO UD Cyclobenzaprine Hcl 10 Mg Tablet 1 Tab PO TID Vitals/I & O Vital Sign - Last 24 Hours 02/17/17 02/17/17 02/17/17 02/17/17 11:00 11:41 14:59 19:00 Temp 97.6 97.7 97.7 97.6 97.7 97.7 Pulse 61 65 78 Resp 18 18 16 B/P (MAP) 117/74 (88) 128/80 (96) 124/73 (90) Pulse Ox 99 99 95 100 O2 Delivery Room Air Room Air Room Air 02/17/17 02/18/17 23:00 07:00 Temp 97.7 97.7 97.7 97.7 Pulse 73 65 Resp 16 18 B/P (MAP) 126/62 (83) 130/74 (92) Pulse Ox 98 95 O2 Delivery Room Air Intake and Output 02/17/17 02/17/17 02/18/17 15:00 23:00 07:00 Intake Total 530 ml 850 ml 100 ml Balance 530 ml 850 ml 100 ml Nutrition Consultation Dietary Evaluation: Recommendations by RD: Dietary education by RD, Increase Calorie Intake, Protein supplementation Comments: diet education provided and discussed on General Healthy Nutrition adv diet to regular offer Ensure prn REC mvi q day at d/c Expected Outcomes/Goals: to meet > 75% est nutr needs Interpretation of weight loss: >7.5% in 3 months Malnutrition Findings: Weight Status: Underweight GILLIAN BAKER MD February 18, 2017 10:46
[2017-02-18 11:04] VITALS: BP 128/72
--- NOTE | 2017-02-18 12:26 | PDOC ---
PROGRESS NOTES Subjective Subjective c/c - f/u of elevated iron ROS- has diarrhea Objective Objective Vital Signs Date Time Temp Pulse Resp B/P (MAP) Pulse Ox O2 Delivery O2 Flow Rate FiO2 02/18/17 11:04 97.7 66 18 128/72 (90) 98 Room Air 97.7 Intake and Output 02/18/17 06:59 Intake Total 1480 ml Balance 1480 ml Intake Oral 1480 ml # Voids 2 Physical Exam Heart: Normal S1, Normal S2 General: Alert, Oriented X3 Lungs: Clear to auscultation Neuro: Normal speech Psych/Mental Status: Mental status NL Assessment Assessment Problems Medical Problems: (1) Abdominal pain Status: Acute (2) Hypokalemia Status: Acute IMPRESSION AND PLAN: 1. Anemia, normochromic, normocytic. Review of the old records indicates that she had a hemoglobin of 9.8 on 02/09/2016. There is no evidence of iron deficiency or B12 deficiency. Her liver function tests had elevated. An ultrasound and CT scan of the abdomen reveals hepatic steatosis. I suspect that she has anemia of chronic disease due to alcoholism. There is no evidence of bleeding. Appreciate GI consultation. The patient will follow up with GI for possible esophagogastroduodenoscopy and colonoscopy. 2. Iron overload. The patient has elevated iron saturation level of 90 on 02/16/2017. I suspect that this is due to liver disease. ferritin is 458 ON 02/17/17. Hemochromatosis gene evaluation results are pending. 3. Tobaccoism. I have advised her to quit smoking. 4. Alcoholism. I have advised her to quit alcohol. 5. Elevated liver function tests, management per GI. 6. Weight loss - CT abd/pelvis is neg for malignancy. I ordered CT chest in view of smoking history - to eval for malignancy. Comment Review of Relevant I have reviewed the following items juan m (where applicable) has been applied. Labs Laboratory Tests Test 02/17/17 04:30 02/17/17 10:45 White Blood Count 5.2 x10^3/uL (4.0-11.0) Red Blood Count 2.95 x10^6/uL (3.50-5.40) Hemoglobin 9.5 g/dL (12.0-15.5) Hematocrit 28.3 % (36.0-47.0) Mean Corpuscular Volume 96 fL (79-100) Mean Corpuscular Hemoglobin 32 pg (25-35) Mean Corpuscular Hemoglobin Concent 34 g/dL (31-37) Red Cell Distribution Width 15.9 % (11.5-14.5) Platelet Count 222 x10^3/uL (140-400) Neutrophils (%) (Auto) 39 % (31-73) Lymphocytes (%) (Auto) 49 % (24-48) Monocytes (%) (Auto) 10 % (0-9) Eosinophils (%) (Auto) 1 % (0-3) Basophils (%) (Auto) 1 % (0-3) Neutrophils # (Auto) 2.0 x10^3uL (1.8-7.7) Lymphocytes # (Auto) 2.6 x10^3/uL (1.0-4.8) Monocytes # (Auto) 0.5 x10^3/uL (0.0-1.1) Eosinophils # (Auto) 0.0 x10^3/uL (0.0-0.7) Basophils # (Auto) 0.1 x10^3/uL (0.0-0.2) Magnesium Level 2.2 mg/dL (1.8-2.4) Ferritin 458 ng/mL (8-252) Erythrocyte Sedimentation Rate 9 (0-25) Microbiology 02/16/17 Stool Culture - Final, Resulted 02/16/17 Stool Culture Result 1 (ILANA) - Final, Resulted 02/16/17 Campylobacter Antigen Assay - Preliminary, Resulted 02/16/17 Campylobactor Result 1 - Preliminary, Resulted 02/16/17 Shiga Toxin Test - Final, Resulted Medications Current Medications Fentanyl Citrate (Fentanyl 2ml Vial) 50 mcg 1X ONCE IV Last administered on 20:02; Start 02/15/17 at 19:30; Stop 02/15/17 at 19:31; Status DC Ondansetron HCl (Zofran) 4 mg 1X ONCE IV Last administered on 02/15/17 20:00 ; Start 02/15/17 at 19:30; Stop 02/15/17 at 19:31; Status DC Sodium Chloride 1,000 ml @ 1,000 mls/hr 1X ONCE IV Last administered on 19:59; Start 02/15/17 at 19:45; Stop 02/15/17 at 20:44; Status DC Famotidine (Pepcid) 20 mg 1X ONCE IVP Last administered on 02/15/17 20:16; Start 02/15/17 at 20:00; Stop 02/15/17 at 20:08; Status DC Potassium Chloride (Klor-Con) 40 meq 1X ONCE PO Last administered on 20:16; Start 02/15/17 at 20:00; Stop 02/15/17 at 20:08; Status DC Potassium Chloride 50 ml @ 50 mls/hr 1X ONCE IV Last administered on 20:16; Start 02/15/17 at 20:00; Stop 02/15/17 at 20:59; Status DC Potassium Chloride/Sodium Chloride 1,000 ml @ 100 mls/hr Q10H IV Last administered on 02/16/17 07:48; Start 02/15/17 at 22:00; Stop 02/16/17 at 08:01 ; Status DC Ondansetron HCl (Zofran) 4 mg PRN Q6HRS PRN IV NAUSEA/VOMITING; Start 02/15/17 at 21:30 Prochlorperazine Edisylate (Compazine) 10 mg PRN Q6HRS PRN IV NAUSEA/VOMITING; Start 02/15/17 at 21:30 Prochlorperazine (Compazine) 25 mg PRN Q12HR PRN ID NAUSEA/VOMITING; Start at 21:30 Al Hydroxide/Mg Hydroxide (Mylanta Plus Xs) 30 ml PRN Q3HRS PRN PO HEARTBURN / GAS; Start 02/15/17 at 21:30 Calcium Carbonate/ Glycine (Tums) 500 mg PRN Q3HRS PRN PO UPSET STOMACH; Start 02/15/17 at 21:30 Zolpidem Tartrate (Ambien) 5 mg PRN QHS PRN PO INSOMNIA, MAY REPEAT IN 1HR; Start 02/15/17 at 21:30 Oxycodone HCl (Roxicodone) 5 mg PRN Q3HRS PRN PO BREAKTHROUGH PAIN Last administered on 02/17/17 10:34; Start 02/15/17 at 21:30 Morphine Sulfate 1 mg PRN Q1HR PRN IV MODERATE PAIN; Start 02/15/17 at 21:30 Ketorolac Tromethamine (Toradol) 15 mg PRN Q6HRS PRN IV MODERATE PAIN; Start at 21:30; Stop 02/20/17 at 21:29 Acetaminophen (Tylenol) 650 mg PRN Q6HRS PRN PO Headaches, Temp > 101.5F; Start 02/15/17 at 21:30 Senna/Docusate Sodium (Senna Plus) 1 tab BID PO ; Start 02/16/17 at 09:00; Stop 02/17/17 at 10:15; Status DC Magnesium Hydroxide (Milk Of Magnesia) 2,400 mg PRN Q12HR PRN PO CONSTIPATION; Start 02/15/17 at 21:30; Stop 02/17/17 at 10:13; Status DC Bisacodyl (Dulcolax Supp) 10 mg PRN DAILY PRN ID CONSTIPATION; Start 02/15/17 at 21:30; Stop 02/17/17 at 10:13; Status DC Enoxaparin Sodium (Lovenox 40mg Syringe) 40 mg Q24H SQ Last administered on 22:26; Start 02/15/17 at 22:00; Stop 02/17/17 at 10:15; Status DC Nicotine (Nicoderm Cq 21mg) 1 patch PRN DAILY PRN TD SMOKING CESSATION; Start 02/15/17 at 21:30 Labetalol HCl (Normodyne) 10 mg PRN Q2HR PRN IVP HYPERTENSION, SEE COMMENTS; Start 02/15/17 at 21:30 Ondansetron HCl (Zofran) 4 mg PRN Q8HRS PRN IV NAUSEA/VOMITING; Start 02/15/17 at 21:30; Stop 02/16/17 at 21:29; Status UNV Multivitamins 10 ml/Folic Acid 1 mg/Thiamine HCl 100 mg/Dextrose/ Sodium Chloride 1,011.2 ml @ 1,000 mls/ hr 1X ONCE IV Last administered on 22:04; Start 02/15/17 at 22:00; Stop 02/15/17 at 23:00; Status DC Famotidine (Pepcid) 20 mg BID IVP Last administered on 02/17/17 07:24; Start 02/16/17 at 09:00; Stop 02/17/17 at 10:15; Status DC Potassium Chloride (Klor-Con) 40 meq 1X ONCE PO Last administered on 22:04; Start 02/15/17 at 22:00; Stop 02/15/17 at 22:01; Status DC Potassium Chloride (Klor-Con) 40 meq DAILY PO ; Start 02/16/17 at 09:00; Stop at 09:00; Status DC Thiamine Mononitrate (Vitamin B-1) 100 mg DAILY PO Last administered on 08:59; Start 02/16/17 at 09:00 Folic Acid (Folic Acid) 1 mg DAILY PO Last administered on 02/18/17 08:59; Start 02/16/17 at 09:00 Vitamin B Complex (Matt B) 1 tab DAILY PO Last administered on 02/18/17 08:59 ; Start 02/16/17 at 09:00 Chlordiazepoxide (Librium) 25 mg PRN Q6HRS PRN PO ANXIETY / AGITATION; Start at 21:45 Nicotine (Nicoderm Cq 21mg) 1 patch PRN DAILY PRN TD SMOKING CESSATION; Start 02/15/17 at 22:00; Status UNV Nicotine Polacrilex (Nicorette Gum) 1 each PRN Q1HR PRN BC SMOKING CESSATION; Start 02/15/17 at 22:00 Magnesium Sulfate/ Dextrose 50 ml @ 25 mls/hr 1X ONCE IV Last administered on 02/16/17 16:44; Start 02/16/17 at 08:00; Stop 02/16/17 at 09:59; Status DC Iohexol (Omnipaque 300 Mg/ml) 75 ml 1X ONCE IV Last administered on 02/16/17 10:30; Start 02/16/17 at 10:30; Stop 02/16/17 at 10:31; Status DC Info (Do NOT chart on this entry -- for MONITORING) 1 each PRN DAILY PRN MC SEE COMMENTS; Start 02/16/17 at 10:30; Stop 02/16/17 at 10:35; Status DC Iohexol (Omnipaque 240 Mg/ml) 30 ml 1X ONCE PO Last administered on 02/16/17 11:00; Start 02/16/17 at 11:00; Stop 02/16/17 at 11:01; Status DC Info (Do NOT chart on this entry -- for MONITORING) 1 each PRN DAILY PRN MC SEE COMMENTS; Start 02/16/17 at 10:45; Stop 02/18/17 at 10:44; Status DC Loperamide HCl (Imodium) 2 mg PRN Q15MIN PRN PO DIARRHEA Last administered on 08:59; Start 02/17/17 at 10:15 Metronidazole (Flagyl) 500 mg Q8HRS PO Last administered on 02/18/17 05:39; Start 02/17/17 at 10:30 Levofloxacin (Levaquin) 500 mg DAILY06 PO Last administered on 02/18/17 05:39 ; Start 02/17/17 at 10:30 Active Scripts Active Amoxicillin 875 Mg Tablet 1 Tab PO BID Naproxen 500 Mg Tablet.dr 1 Tab PO BID Cyclobenzaprine Hcl 10 Mg Tablet 1 Tab PO TID Medrol (Methylprednisolone) 4 Mg Tab.ds.pk 1 Pkg PO UD Cyclobenzaprine Hcl 10 Mg Tablet 1 Tab PO TID Vitals/I & O Vital Sign - Last 24 Hours 02/17/17 02/17/17 02/17/17 02/18/17 14:59 19:00 23:00 07:00 Temp 97.7 97.7 97.7 97.7 97.7 97.7 97.7 97.7 Pulse 65 78 73 65 Resp 18 16 16 18 B/P (MAP) 128/80 (96) 124/73 (90) 126/62 (83) 130/74 (92) Pulse Ox 95 100 98 95 O2 Delivery Room Air Room Air 02/18/17 11:04 Temp 97.7 97.7 Pulse 66 Resp 18 B/P (MAP) 128/72 (90) Pulse Ox 98 O2 Delivery Room Air Intake and Output 02/17/17 02/17/17 02/18/17 14:59 22:59 06:59 Intake Total 530 ml 850 ml 100 ml Balance 530 ml 850 ml 100 ml Nutrition Consultation Dietary Evaluation: Recommendations by RD: Dietary education by RD, Increase Calorie Intake, Protein supplementation Comments: diet education provided and discussed on General Healthy Nutrition adv diet to regular offer Ensure prn REC mvi q day at d/c Expected Outcomes/Goals: to meet > 75% est nutr needs Interpretation of weight loss: >7.5% in 3 months Malnutrition Findings: Weight Status: Underweight YOSHI HUFF MD February 18, 2017 12:26
[2017-02-18 15:00] VITALS: BP 122/81
--- NOTE | 2017-02-18 15:38 | RAD ---
CT of the chest without contrast, 02/18/2017: History: Weight loss, chronic smoker Noncontrast scans were obtained as requested. There is mild aortic calcific plaquing without evidence of aneurysm. There are extensive coronary artery radiopacities compatible with calcifications and/or stents. No mediastinal adenopathy is seen. There are faint scattered lucencies in the lungs compatible with mild emphysematous change. A few small scattered linear parenchymal opacities are compatible with scars. No pulmonary mass or significant infiltrate is seen. There is no evidence of pleural fluid. There are mild scattered spurs in the thoracic spine. There is a mild superior endplate deformity due to a Schmorl's node in the midthoracic region. IMPRESSION: 1. Minimal pulmonary emphysema and scarring. 2. Coronary artery disease. 3. No acute abnormality is detected. PQRS Compliance Statement: One or more of the following individualized dose reduction techniques were utilized for this examination: 1. Automated exposure control 2. Adjustment of the mA and/or kV according to patient size 3. Use of iterative reconstruction technique
--- NOTE | 2017-02-18 15:49 | PDOC ---
Provider Note Provider Note diarrhea persists. pain is minimal and in lower abdomen afeb vss alert, no distress abd soft nd nt a/p diarrhea, no surg plans cholelithiasis, symptoms of diarrhea and lack of RUQ pain not typical of symptomatic gallstones. JULISSA MILES MD February 18, 2017 15:49
[2017-02-18 19:59] VITALS: BP 122/79
[2017-02-18 23:59] VITALS: BP 120/79
[2017-02-19 05:24] LABS: BASO % 1 % (0-3); EOS % 1 % (0-3); HEMATOCRIT 34.7 % (36.0-47.0); HEMOGLOBIN 10.5 g/dL (12.0-15.5); LYMPH # 1.8 x10^3/uL (1.0-4.8); LYMPH % 36 % (24-48); MEAN CORPUSCULAR HEMOGLOBIN 32 pg (25-35); MEAN CORPUSCULAR HGB CONC 30 g/dL (31-37); MEAN CORPUSCULAR VOLUME 105 fL (79-100); MONO % 12 % (0-9); NEUT % 50 % (31-73); PLATELET COUNT 233 x10^3/uL (140-400); RED BLOOD COUNT 3.31 x10^6/uL (3.50-5.40); RED CELL DISTRIBUTION WIDTH 16.5 % (11.5-14.5); WHITE BLOOD COUNT 5.1 x10^3/uL (4.0-11.0)
[2017-02-19 05:35] LABS: CALCIUM 8.9 mg/dL (8.5-10.1); CREATININE 0.6 mg/dL (0.6-1.0); GFR 126.1; POTASSIUM 3.6 mmol/L (3.5-5.1)
[2017-02-19] MEDS: metroNIDAZOLE 500 MG TABLET PO SCH (05:55)
[2017-02-19 07:00] VITALS: BP 131/75
[2017-02-19] MEDS: VITAMIN B COMPLEX TABLET. PO SCH (09:00)
[2017-02-19] MEDS: FOLIC ACID 1 MG TABLET. PO SCH (09:00)
[2017-02-19] MEDS: THIAMINE 100 MG TABLET. PO SCH (09:00)
[2017-02-19] MEDS: oxyCODONE IR 5 MG TABLET PO PRN (09:07)
[2017-02-19 11:08] VITALS: BP 117/78
--- NOTE | 2017-02-19 11:44 | PDOC ---
PROGRESS NOTES Chief Complaint Chief Complaint 1. Colitis, enteritis 2. CHolelithiasis but no cholecystitis, fatty liver 3. Heavy etoh drinker 4. Recreational drug use 5. SMoker 6. ELevated LFts 7. Known CAD with 1 cardiac stent 8, hx brain "clot" 9,. CRITICAL HYPOKALEMIA from GI loss (emesis, diarrhea), resolved 10. Hyponatremia, resolved History of Present Illness History of Present Illness Diarrhea seems to be slowing down, 2 yesterday - 1 so far today and a bit solid per pt account NO VS Good PO intake NO White ct on PO flagyl and levaquin PLAn: if cont to do good today, home RX in chart Vitals Vitals Vital Signs Date Time Temp Pulse Resp B/P (MAP) Pulse Ox O2 Delivery O2 Flow Rate FiO2 02/19/17 11:08 97.8 67 18 117/78 (91) 100 Room Air 97.8 Physical Exam General: Alert, Oriented X3 Heart: Normal S1, Normal S2 Lungs: Clear Abdomen: Soft, Other (tenderness lower abdomen, mild ) Extremities: No clubbing, No cyanosis Skin: Other (lesions, scabs to BLEs) Labs LABS Laboratory Tests Test 02/19/17 03:50 White Blood Count 5.1 x10^3/uL (4.0-11.0) Red Blood Count 3.31 x10^6/uL (3.50-5.40) Hemoglobin 10.5 g/dL (12.0-15.5) Hematocrit 34.7 % (36.0-47.0) Mean Corpuscular Volume 105 fL (79-100) Mean Corpuscular Hemoglobin 32 pg (25-35) Mean Corpuscular Hemoglobin Concent 30 g/dL (31-37) Red Cell Distribution Width 16.5 % (11.5-14.5) Platelet Count 233 x10^3/uL (140-400) Neutrophils (%) (Auto) 50 % (31-73) Lymphocytes (%) (Auto) 36 % (24-48) Monocytes (%) (Auto) 12 % (0-9) Eosinophils (%) (Auto) 1 % (0-3) Basophils (%) (Auto) 1 % (0-3) Neutrophils # (Auto) 2.6 x10^3uL (1.8-7.7) Lymphocytes # (Auto) 1.8 x10^3/uL (1.0-4.8) Monocytes # (Auto) 0.6 x10^3/uL (0.0-1.1) Eosinophils # (Auto) 0.0 x10^3/uL (0.0-0.7) Basophils # (Auto) 0.0 x10^3/uL (0.0-0.2) Sodium Level 135 mmol/L (136-145) Potassium Level 3.6 mmol/L (3.5-5.1) Chloride Level 101 mmol/L (98-107) Carbon Dioxide Level 24 mmol/L (21-32) Anion Gap 10 (6-14) Blood Urea Nitrogen 2 mg/dL (7-20) Creatinine 0.6 mg/dL (0.6-1.0) Estimated GFR (Cockcroft-Gault) 126.1 Glucose Level 88 mg/dL (70-99) Calcium Level 8.9 mg/dL (8.5-10.1) Review of Systems Review of Systems soft stools, some abd pain, no emesis, fevers Assessment and Plan Assessmemt and Plan Problems Medical Problems: (1) Abdominal pain Status: Acute (2) Hypokalemia Status: Acute Problems: Comment Review of Relevant I have reviewed the following items juan m (where applicable) has been applied. Labs Laboratory Tests Test 02/19/17 03:50 White Blood Count 5.1 x10^3/uL (4.0-11.0) Red Blood Count 3.31 x10^6/uL (3.50-5.40) Hemoglobin 10.5 g/dL (12.0-15.5) Hematocrit 34.7 % (36.0-47.0) Mean Corpuscular Volume 105 fL (79-100) Mean Corpuscular Hemoglobin 32 pg (25-35) Mean Corpuscular Hemoglobin Concent 30 g/dL (31-37) Red Cell Distribution Width 16.5 % (11.5-14.5) Platelet Count 233 x10^3/uL (140-400) Neutrophils (%) (Auto) 50 % (31-73) Lymphocytes (%) (Auto) 36 % (24-48) Monocytes (%) (Auto) 12 % (0-9) Eosinophils (%) (Auto) 1 % (0-3) Basophils (%) (Auto) 1 % (0-3) Neutrophils # (Auto) 2.6 x10^3uL (1.8-7.7) Lymphocytes # (Auto) 1.8 x10^3/uL (1.0-4.8) Monocytes # (Auto) 0.6 x10^3/uL (0.0-1.1) Eosinophils # (Auto) 0.0 x10^3/uL (0.0-0.7) Basophils # (Auto) 0.0 x10^3/uL (0.0-0.2) Sodium Level 135 mmol/L (136-145) Potassium Level 3.6 mmol/L (3.5-5.1) Chloride Level 101 mmol/L (98-107) Carbon Dioxide Level 24 mmol/L (21-32) Anion Gap 10 (6-14) Blood Urea Nitrogen 2 mg/dL (7-20) Creatinine 0.6 mg/dL (0.6-1.0) Estimated GFR (Cockcroft-Gault) 126.1 Glucose Level 88 mg/dL (70-99) Calcium Level 8.9 mg/dL (8.5-10.1) Laboratory Tests Test 02/19/17 03:50 White Blood Count 5.1 x10^3/uL (4.0-11.0) Red Blood Count 3.31 x10^6/uL (3.50-5.40) Hemoglobin 10.5 g/dL (12.0-15.5) Hematocrit 34.7 % (36.0-47.0) Mean Corpuscular Volume 105 fL (79-100) Mean Corpuscular Hemoglobin 32 pg (25-35) Mean Corpuscular Hemoglobin Concent 30 g/dL (31-37) Red Cell Distribution Width 16.5 % (11.5-14.5) Platelet Count 233 x10^3/uL (140-400) Neutrophils (%) (Auto) 50 % (31-73) Lymphocytes (%) (Auto) 36 % (24-48) Monocytes (%) (Auto) 12 % (0-9) Eosinophils (%) (Auto) 1 % (0-3) Basophils (%) (Auto) 1 % (0-3) Neutrophils # (Auto) 2.6 x10^3uL (1.8-7.7) Lymphocytes # (Auto) 1.8 x10^3/uL (1.0-4.8) Monocytes # (Auto) 0.6 x10^3/uL (0.0-1.1) Eosinophils # (Auto) 0.0 x10^3/uL (0.0-0.7) Basophils # (Auto) 0.0 x10^3/uL (0.0-0.2) Sodium Level 135 mmol/L (136-145) Potassium Level 3.6 mmol/L (3.5-5.1) Chloride Level 101 mmol/L (98-107) Carbon Dioxide Level 24 mmol/L (21-32) Anion Gap 10 (6-14) Blood Urea Nitrogen 2 mg/dL (7-20) Creatinine 0.6 mg/dL (0.6-1.0) Estimated GFR (Cockcroft-Gault) 126.1 Glucose Level 88 mg/dL (70-99) Calcium Level 8.9 mg/dL (8.5-10.1) Microbiology 02/16/17 Stool Culture - Final, Resulted 02/16/17 Stool Culture Result 1 (ILANA) - Final, Resulted 02/16/17 Campylobacter Antigen Assay - Preliminary, Resulted 02/16/17 Campylobactor Result 1 - Preliminary, Resulted 02/16/17 Shiga Toxin Test - Final, Resulted Medications Current Medications Fentanyl Citrate (Fentanyl 2ml Vial) 50 mcg 1X ONCE IV Last administered on 20:02; Start 02/15/17 at 19:30; Stop 02/15/17 at 19:31; Status DC Ondansetron HCl (Zofran) 4 mg 1X ONCE IV Last administered on 02/15/17 20:00 ; Start 02/15/17 at 19:30; Stop 02/15/17 at 19:31; Status DC Sodium Chloride 1,000 ml @ 1,000 mls/hr 1X ONCE IV Last administered on 19:59; Start 02/15/17 at 19:45; Stop 02/15/17 at 20:44; Status DC Famotidine (Pepcid) 20 mg 1X ONCE IVP Last administered on 02/15/17 20:16; Start 02/15/17 at 20:00; Stop 02/15/17 at 20:08; Status DC Potassium Chloride (Klor-Con) 40 meq 1X ONCE PO Last administered on 20:16; Start 02/15/17 at 20:00; Stop 02/15/17 at 20:08; Status DC Potassium Chloride 50 ml @ 50 mls/hr 1X ONCE IV Last administered on 20:16; Start 02/15/17 at 20:00; Stop 02/15/17 at 20:59; Status DC Potassium Chloride/Sodium Chloride 1,000 ml @ 100 mls/hr Q10H IV Last administered on 02/16/17 07:48; Start 02/15/17 at 22:00; Stop 02/16/17 at 08:01 ; Status DC Ondansetron HCl (Zofran) 4 mg PRN Q6HRS PRN IV NAUSEA/VOMITING; Start 02/15/17 at 21:30 Prochlorperazine Edisylate (Compazine) 10 mg PRN Q6HRS PRN IV NAUSEA/VOMITING; Start 02/15/17 at 21:30 Prochlorperazine (Compazine) 25 mg PRN Q12HR PRN MD NAUSEA/VOMITING; Start at 21:30 Al Hydroxide/Mg Hydroxide (Mylanta Plus Xs) 30 ml PRN Q3HRS PRN PO HEARTBURN / GAS; Start 02/15/17 at 21:30 Calcium Carbonate/ Glycine (Tums) 500 mg PRN Q3HRS PRN PO UPSET STOMACH; Start 02/15/17 at 21:30 Zolpidem Tartrate (Ambien) 5 mg PRN QHS PRN PO INSOMNIA, MAY REPEAT IN 1HR; Start 02/15/17 at 21:30 Oxycodone HCl (Roxicodone) 5 mg PRN Q3HRS PRN PO BREAKTHROUGH PAIN Last administered on 02/19/17 09:07; Start 02/15/17 at 21:30 Morphine Sulfate 1 mg PRN Q1HR PRN IV MODERATE PAIN; Start 02/15/17 at 21:30 Ketorolac Tromethamine (Toradol) 15 mg PRN Q6HRS PRN IV MODERATE PAIN; Start at 21:30; Stop 02/20/17 at 21:29 Acetaminophen (Tylenol) 650 mg PRN Q6HRS PRN PO Headaches, Temp > 101.5F; Start 02/15/17 at 21:30 Senna/Docusate Sodium (Senna Plus) 1 tab BID PO ; Start 02/16/17 at 09:00; Stop 02/17/17 at 10:15; Status DC Magnesium Hydroxide (Milk Of Magnesia) 2,400 mg PRN Q12HR PRN PO CONSTIPATION; Start 02/15/17 at 21:30; Stop 02/17/17 at 10:13; Status DC Bisacodyl (Dulcolax Supp) 10 mg PRN DAILY PRN MD CONSTIPATION; Start 02/15/17 at 21:30; Stop 02/17/17 at 10:13; Status DC Enoxaparin Sodium (Lovenox 40mg Syringe) 40 mg Q24H SQ Last administered on 22:26; Start 02/15/17 at 22:00; Stop 02/17/17 at 10:15; Status DC Nicotine (Nicoderm Cq 21mg) 1 patch PRN DAILY PRN TD SMOKING CESSATION Last administered on 02/19/17 09:07; Start 02/15/17 at 21:30 Labetalol HCl (Normodyne) 10 mg PRN Q2HR PRN IVP HYPERTENSION, SEE COMMENTS; Start 02/15/17 at 21:30 Ondansetron HCl (Zofran) 4 mg PRN Q8HRS PRN IV NAUSEA/VOMITING; Start 02/15/17 at 21:30; Stop 02/16/17 at 21:29; Status UNV Multivitamins 10 ml/Folic Acid 1 mg/Thiamine HCl 100 mg/Dextrose/ Sodium Chloride 1,011.2 ml @ 1,000 mls/ hr 1X ONCE IV Last administered on 22:04; Start 02/15/17 at 22:00; Stop 02/15/17 at 23:00; Status DC Famotidine (Pepcid) 20 mg BID IVP Last administered on 02/17/17 07:24; Start 02/16/17 at 09:00; Stop 02/17/17 at 10:15; Status DC Potassium Chloride (Klor-Con) 40 meq 1X ONCE PO Last administered on 22:04; Start 02/15/17 at 22:00; Stop 02/15/17 at 22:01; Status DC Potassium Chloride (Klor-Con) 40 meq DAILY PO ; Start 02/16/17 at 09:00; Stop at 09:00; Status DC Thiamine Mononitrate (Vitamin B-1) 100 mg DAILY PO Last administered on 09:00; Start 02/16/17 at 09:00 Folic Acid (Folic Acid) 1 mg DAILY PO Last administered on 02/19/17 09:00; Start 02/16/17 at 09:00 Vitamin B Complex (Matt B) 1 tab DAILY PO Last administered on 02/19/17 09:00 ; Start 02/16/17 at 09:00 Chlordiazepoxide (Librium) 25 mg PRN Q6HRS PRN PO ANXIETY / AGITATION; Start at 21:45 Nicotine (Nicoderm Cq 21mg) 1 patch PRN DAILY PRN TD SMOKING CESSATION; Start 02/15/17 at 22:00; Status UNV Nicotine Polacrilex (Nicorette Gum) 1 each PRN Q1HR PRN BC SMOKING CESSATION; Start 02/15/17 at 22:00 Magnesium Sulfate/ Dextrose 50 ml @ 25 mls/hr 1X ONCE IV Last administered on 02/16/17 16:44; Start 02/16/17 at 08:00; Stop 02/16/17 at 09:59; Status DC Iohexol (Omnipaque 300 Mg/ml) 75 ml 1X ONCE IV Last administered on 02/16/17 10:30; Start 02/16/17 at 10:30; Stop 02/16/17 at 10:31; Status DC Info (Do NOT chart on this entry -- for MONITORING) 1 each PRN DAILY PRN MC SEE COMMENTS; Start 02/16/17 at 10:30; Stop 02/16/17 at 10:35; Status DC Iohexol (Omnipaque 240 Mg/ml) 30 ml 1X ONCE PO Last administered on 02/16/17 11:00; Start 02/16/17 at 11:00; Stop 02/16/17 at 11:01; Status DC Info (Do NOT chart on this entry -- for MONITORING) 1 each PRN DAILY PRN MC SEE COMMENTS; Start 02/16/17 at 10:45; Stop 02/18/17 at 10:44; Status DC Loperamide HCl (Imodium) 2 mg PRN Q15MIN PRN PO DIARRHEA Last administered on 21:58; Start 02/17/17 at 10:15; Stop 02/19/17 at 12:00 Metronidazole (Flagyl) 500 mg Q8HRS PO Last administered on 02/19/17 05:55; Start 02/17/17 at 10:30 Levofloxacin (Levaquin) 500 mg DAILY06 PO Last administered on 02/19/17 05:55 ; Start 02/17/17 at 10:30 Loperamide HCl (Imodium) 2 mg Q4HRS PO ; Start 02/19/17 at 12:00 Active Scripts Active Amoxicillin 875 Mg Tablet 1 Tab PO BID Naproxen 500 Mg Tablet.dr 1 Tab PO BID Cyclobenzaprine Hcl 10 Mg Tablet 1 Tab PO TID Medrol (Methylprednisolone) 4 Mg Tab.ds.pk 1 Pkg PO UD Cyclobenzaprine Hcl 10 Mg Tablet 1 Tab PO TID Vitals/I & O Vital Sign - Last 24 Hours 02/18/17 02/18/17 02/18/17 02/19/17 15:00 19:59 23:59 07:00 Temp 97.6 97.8 98.3 97.8 97.6 97.8 98.3 97.8 Pulse 64 79 75 66 Resp 16 18 18 18 B/P (MAP) 122/81 (95) 122/79 (93) 120/79 (93) 131/75 (93) Pulse Ox 100 98 100 98 O2 Delivery Room Air Room Air Room Air Room Air 02/19/17 02/19/17 02/19/17 08:00 10:14 11:08 Temp 97.8 97.8 Pulse 67 Resp 18 B/P (MAP) 117/78 (91) Pulse Ox 98 100 O2 Delivery Room Air Room Air Room Air Intake and Output 02/18/17 02/18/17 02/19/17 15:00 23:00 07:00 Intake Total 500 ml 120 ml Balance 500 ml 120 ml Nutrition Consultation Dietary Evaluation: Recommendations by RD: Dietary education by RD, Increase Calorie Intake, Protein supplementation Comments: diet education provided and discussed on General Healthy Nutrition adv diet to regular offer Ensure prn REC mvi q day at d/c Expected Outcomes/Goals: to meet > 75% est nutr needs Interpretation of weight loss: >7.5% in 3 months Malnutrition Findings: Weight Status: Underweight GILLIAN BAKER MD February 19, 2017 11:44
[2017-02-19] MEDS ORDERED: LEVO500T38 PO (11:46)
[2017-02-19] MEDS ORDERED: METR500T PO (11:46)
--- NOTE | 2017-02-19 11:52 | PDOC3 ---
Discharge Summary Visit Information Date of Admission: February 15, 2017 Date of Discharge: February 19, 2017 Admitting Diagnosis Comment: 1. Colitis, enteritis 2. CHolelithiasis but no cholecystitis, fatty liver 3. Heavy etoh drinker 4. Recreational drug use 5. SMoker 6. ELevated LFts 7. Known CAD with 1 cardiac stent 8, hx brain "clot" 9,. CRITICAL HYPOKALEMIA from GI loss (emesis, diarrhea), resolved 10. Hyponatremia, resolved Final Diagnosis Problems Medical Problems: (1) Abdominal pain Status: Acute (2) Hypokalemia Status: Acute Brief Hospital Course Allergies Allergies Coded Allergies Type Severity Reaction Last Updated Verified No Known Drug Allergies 11/25/14 No Vital Signs Vital Signs Date Time Temp Pulse Resp B/P (MAP) Pulse Ox O2 Delivery O2 Flow Rate FiO2 02/19/17 11:08 97.8 67 18 117/78 (91) 100 Room Air 97.8 Lab Results Laboratory Tests Test 02/19/17 03:50 White Blood Count 5.1 x10^3/uL (4.0-11.0) Red Blood Count 3.31 x10^6/uL (3.50-5.40) Hemoglobin 10.5 g/dL (12.0-15.5) Hematocrit 34.7 % (36.0-47.0) Mean Corpuscular Volume 105 fL (79-100) Mean Corpuscular Hemoglobin 32 pg (25-35) Mean Corpuscular Hemoglobin Concent 30 g/dL (31-37) Red Cell Distribution Width 16.5 % (11.5-14.5) Platelet Count 233 x10^3/uL (140-400) Neutrophils (%) (Auto) 50 % (31-73) Lymphocytes (%) (Auto) 36 % (24-48) Monocytes (%) (Auto) 12 % (0-9) Eosinophils (%) (Auto) 1 % (0-3) Basophils (%) (Auto) 1 % (0-3) Neutrophils # (Auto) 2.6 x10^3uL (1.8-7.7) Lymphocytes # (Auto) 1.8 x10^3/uL (1.0-4.8) Monocytes # (Auto) 0.6 x10^3/uL (0.0-1.1) Eosinophils # (Auto) 0.0 x10^3/uL (0.0-0.7) Basophils # (Auto) 0.0 x10^3/uL (0.0-0.2) Sodium Level 135 mmol/L (136-145) Potassium Level 3.6 mmol/L (3.5-5.1) Chloride Level 101 mmol/L (98-107) Carbon Dioxide Level 24 mmol/L (21-32) Anion Gap 10 (6-14) Blood Urea Nitrogen 2 mg/dL (7-20) Creatinine 0.6 mg/dL (0.6-1.0) Estimated GFR (Cockcroft-Gault) 126.1 Glucose Level 88 mg/dL (70-99) Calcium Level 8.9 mg/dL (8.5-10.1) Laboratory Tests Test 02/19/17 03:50 White Blood Count 5.1 x10^3/uL (4.0-11.0) Red Blood Count 3.31 x10^6/uL (3.50-5.40) Hemoglobin 10.5 g/dL (12.0-15.5) Hematocrit 34.7 % (36.0-47.0) Mean Corpuscular Volume 105 fL (79-100) Mean Corpuscular Hemoglobin 32 pg (25-35) Mean Corpuscular Hemoglobin Concent 30 g/dL (31-37) Red Cell Distribution Width 16.5 % (11.5-14.5) Platelet Count 233 x10^3/uL (140-400) Neutrophils (%) (Auto) 50 % (31-73) Lymphocytes (%) (Auto) 36 % (24-48) Monocytes (%) (Auto) 12 % (0-9) Eosinophils (%) (Auto) 1 % (0-3) Basophils (%) (Auto) 1 % (0-3) Neutrophils # (Auto) 2.6 x10^3uL (1.8-7.7) Lymphocytes # (Auto) 1.8 x10^3/uL (1.0-4.8) Monocytes # (Auto) 0.6 x10^3/uL (0.0-1.1) Eosinophils # (Auto) 0.0 x10^3/uL (0.0-0.7) Basophils # (Auto) 0.0 x10^3/uL (0.0-0.2) Sodium Level 135 mmol/L (136-145) Potassium Level 3.6 mmol/L (3.5-5.1) Chloride Level 101 mmol/L (98-107) Carbon Dioxide Level 24 mmol/L (21-32) Anion Gap 10 (6-14) Blood Urea Nitrogen 2 mg/dL (7-20) Creatinine 0.6 mg/dL (0.6-1.0) Estimated GFR (Cockcroft-Gault) 126.1 Glucose Level 88 mg/dL (70-99) Calcium Level 8.9 mg/dL (8.5-10.1) Brief Hospital Course Ms. Wiseman is a 56 old AA female, smoker, heavy etoh drinker, admitted for 4 days hx watery diarrhea, no fevers, no recent sick contact, no travel,. C diff was neg, Mild KATY and hyponat and hypokal on admit, replaced. Stools are now becoming more formed, i started antibiotics 2 days ago despite no white ct and fever bec of persistence and duration of symptoms, seems to be better now, Will go home, rx provided, Dw rn and pt. 2 visits/2 notes today Pt seen and examined dc time 32 mins ConsulT GS and gI Proc : none addendum: some cholelith on CT but sx was not typical of symptomatic cholelith Discharge Information Condition at Discharge: Improved, Stable Disposition/Orders: D/C to Home Scheduled Amoxicillin (Amoxicillin), 1 TAB PO BID Cyclobenzaprine Hcl (Cyclobenzaprine Hcl), 1 TAB PO TID Cyclobenzaprine Hcl (Cyclobenzaprine Hcl), 1 TAB PO TID Methylprednisolone (Medrol), 1 PKG PO UD Naproxen (Naproxen), 1 TAB PO BID GILLIAN BAKER MD February 19, 2017 11:52
[2017-02-19] MEDS ORDERED: LOPERAMIDE 2 MG CAPSULE PO SCH (12:00)
--- NOTE | 2017-02-19 15:35 | ED.ADGEN ---
Past Medical History Past Medical History: Other Additional Past Medical Histor: CHRONIC BACK PAIN Past Surgical History: No Surgical History Alcohol Use: Occasionally Drug Use: None Adult General Chief Complaint Chief Complaint: BACK PAIN - NO INJURY HPI HPI Patient is a 56 year old -[place] female who presents with persistent epigastric pain radiating to back, nausea vomiting 2 days. Patient states that pain is not reproducible worse with position change. No hematemesis or coffee- ground emesis. No diarrhea constipation dark tarry stools or bloody stools. No fever chills or sweats. Patient reports generalized fatigue and malaise. She acknowledges drinking heavily daily and occasional recreational drug use. Past medical history significant for CAD. Patient has chest pain and shortness of breath. No other acute symptoms or complaints. Review of Systems Review of Systems ROS as per HPI. Current Medications Current Medications Current Medications Medications (Trade) Dose Ordered Sig/Zulma Start Time Stop Time Status Last Admin Dose Admin Famotidine (Pepcid) 20 mg 1X ONCE 02/15/17 20:00 02/15/17 20:08 DC 02/15/17 20:16 20 MG Fentanyl Citrate (Fentanyl 2ml Vial) 50 mcg 1X ONCE 02/15/17 19:30 02/15/17 19:31 DC 02/15/17 20:02 50 MCG Ondansetron HCl (Zofran) 4 mg 1X ONCE 02/15/17 19:30 02/15/17 19:31 DC 02/15/17 20:00 4 MG Potassium Chloride 50 ml @ 50 mls/hr 1X ONCE 02/15/17 20:00 02/15/17 20:59 DC 02/15/17 20:16 50 MLS/HR Potassium Chloride (Klor-Con) 40 meq 1X ONCE 02/15/17 20:00 02/15/17 20:08 DC 02/15/17 20:16 40 MEQ Sodium Chloride 1,000 ml @ 1,000 mls/hr 1X ONCE 02/15/17 19:45 02/15/17 20:44 DC 02/15/17 19:59 1,000 MLS/HR Allergies Allergies Allergies Coded Allergies Type Severity Reaction Last Updated Verified No Known Drug Allergies 11/25/14 No Physical Exam Physical Exam Constitutional: Well developed, well nourished, moderate discomfort secondary to pain. Non-toxic appearance. HENT: Normocephalic, atraumatic, bilateral external ears normal, oropharynx moist, no oral exudates, nose normal. Eyes: PERRLA, EOMI, conjunctiva normal. Neck: Normal range of motion, no tenderness, supple, no stridor. Cardiovascular:Heart rate regular rhythm, no murmur. Lungs & Thorax: Bilateral breath sounds clear to auscultation. Abdomen: Bowel sounds normal, soft, use abdominal pain, with mild epigastric tenderness. No rebound rigidity or guarding. Skin: Warm, dry, no erythema. Back: No tenderness, no CVA tenderness. Extremities: No tenderness, no cyanosis. Neurologic: Alert and oriented X 3, normal motor function, normal sensory function, no focal deficits noted. Psychologic: Affect normal, judgement normal, mood normal. Current Patient Data Vital Signs Vital Signs Date Time Temp Pulse Resp B/P (MAP) Pulse Ox O2 Delivery O2 Flow Rate FiO2 02/15/17 19:55 96 145/95 (112) 02/15/17 18:40 97.8 20 99 Room Air 97.8 Lab Values Laboratory Tests Test 02/15/17 19:02 02/15/17 19:29 Urine Collection Type Unknown Urine Color [place] Urine Clarity Turbid Urine pH 5.5 Urine Specific [place] 1.020 Urine Protein Negative mg/dL (NEG-TRACE) Urine Glucose (UA) Negative mg/dL (NEG) Urine Ketones (Stick) Trace mg/dL (NEG) Urine Blood Negative (NEG) Urine Nitrite Negative (NEG) Urine Bilirubin Moderate (NEG) Urine Urobilinogen Dipstick 2.0 mg/dL (0.2 mg/dL) Urine Leukocyte Esterase Negative (NEG) Urine RBC Occ /HPF (0-2) Urine WBC 1-4 /HPF (0-4) Urine Squamous Epithelial Cells Many /LPF Urine Bacteria Few /HPF (0-FEW) Urine Hyaline Casts Many /HPF Urine Mucus Marked /LPF Urine Opiates Screen Neg (NEG) Urine Methadone Screen Neg (NEG) Urine Barbiturates Neg (NEG) Urine Phencyclidine Screen Neg (NEG) Urine Amphetamine/Methamphetamine Neg (NEG) Urine Benzodiazepines Screen Neg (NEG) Urine Cocaine Screen Neg (NEG) Urine Cannabinoids Screen Pos (NEG) Urine Ethyl Alcohol Pos (NEG) White Blood Count 7.6 x10^3/uL (4.0-11.0) Red Blood Count 4.00 x10^6/uL (3.50-5.40) Hemoglobin 13.0 g/dL (12.0-15.5) Hematocrit 37.7 % (36.0-47.0) Mean Corpuscular Volume 94 fL (79-100) Mean Corpuscular Hemoglobin 32 pg (25-35) Mean Corpuscular Hemoglobin Concent 34 g/dL (31-37) Red Cell Distribution Width 15.3 % (11.5-14.5) H Platelet Count 265 x10^3/uL (140-400) Neutrophils (%) (Auto) 70 % (31-73) Lymphocytes (%) (Auto) 17 % (24-48) L Monocytes (%) (Auto) 12 % (0-9) H Eosinophils (%) (Auto) 0 % (0-3) Basophils (%) (Auto) 0 % (0-3) Neutrophils # (Auto) 5.3 x10^3uL (1.8-7.7) Lymphocytes # (Auto) 1.3 x10^3/uL (1.0-4.8) Monocytes # (Auto) 0.9 x10^3/uL (0.0-1.1) Eosinophils # (Auto) 0.0 x10^3/uL (0.0-0.7) Basophils # (Auto) 0.0 x10^3/uL (0.0-0.2) Sodium Level 131 mmol/L (136-145) L Potassium Level 2.6 mmol/L (3.5-5.1) *L Chloride Level 92 mmol/L (98-107) L Carbon Dioxide Level 26 mmol/L (21-32) Anion Gap 13 (6-14) Blood Urea Nitrogen 5 mg/dL (7-20) L Creatinine 0.9 mg/dL (0.6-1.0) Estimated GFR (Cockcroft-Gault) 79.0 BUN/Creatinine Ratio 6 (6-20) Glucose Level 123 mg/dL (70-99) H Calcium Level 9.2 mg/dL (8.5-10.1) Magnesium Level 1.7 mg/dL (1.8-2.4) L Total Bilirubin 1.9 mg/dL (0.2-1.0) H Aspartate Amino Transferase (AST) 66 U/L (15-37) H Alanine Aminotransferase (ALT) 55 U/L (14-59) Alkaline Phosphatase 219 U/L (46-116) H Total Protein 7.5 g/dL (6.4-8.2) Albumin 3.1 g/dL (3.4-5.0) L Albumin/Globulin Ratio 0.7 (1.0-1.7) L Lipase 53 U/L (73-393) L Ethyl Alcohol Level < 10 mg/dL (0-10) Laboratory Tests 02/15/17 19:29 Laboratory Tests 02/15/17 19:29 EKG EKG [EKG: Normal sinus rhythm, no acute ST-T wave changes.] Radiology/Procedures Radiology/Procedures [] Course & Med Decision Making Course & Med Decision Making Pertinent Labs and Imaging studies reviewed. (See chart for details) [Acute gastritis nausea vomiting and hypokalemia. +ETOH. Potassium replaced in the ED. Will admit for critical hypokalemia.] Dragon Disclaimer Dragon Disclaimer This electronic medical record was generated, in whole or in part, using a voice recognition dictation system. TRAVIS DAVILA DO February 19, 2017 15:35
== END 2017-02-19 14:22 | disposition home or self-care (01) | DRG 683 ==
LOC: ER 18:23 → 5 SOUTH 20:00
PROVIDERS: ADMIT Internal Medicine; ATTEND Internal Medicine
DX: N17.9 Acute kidney failure, unspecified (principal); A09 Infectious gastroenteritis and colitis, unspecified; E44.1 Mild protein-calorie malnutrition; E87.1 Hypo-osmolality and hyponatremia; Z68.1 Body mass index [BMI] 19.9 or less, adult; K80.20 Calculus of gallbladder without cholecystitis without obstruction; F10.20 Alcohol dependence, uncomplicated; E87.6 Hypokalemia; I25.10 Atherosclerotic heart disease of native coronary artery without angina pectoris; K76.0 Fatty (change of) liver, not elsewhere classified; F17.210 Nicotine dependence, cigarettes, uncomplicated; G89.29 Other chronic pain; M54.5 Low back pain; R07.9 Chest pain, unspecified; D63.8 Anemia in other chronic diseases classified elsewhere; Z79.899 Other long term (current) drug therapy; Z79.1 Long term (current) use of non-steroidal anti-inflammatories (NSAID); Z95.5 Presence of coronary angioplasty implant and graft; Z79.82 Long term (current) use of aspirin; Z79.2 Long term (current) use of antibiotics; K29.00 Acute gastritis without bleeding
CPT/HCPCS: 36415; 71250; 74177; 76700; 80048; 80053; 80076; 81001; 81256; 82607; 82728; 82746; 83540; 83550; 83690; 83735; 84100; 85027; 85045; 85610; 85651; 87045; 87324; 93005; 96365; 96375; G0480; G0481; J1650; J2405; J3010; J3480; J7030; J7060; Q9966; Q9967; S0028; 99285-25